=== PATIENT | female | born 1960 | race Hispanic/Latino ===

== ENCOUNTER 2017-05-27 07:43 | Emergency (ER) | payer MEDICARE, MEDICAID ==
[2017-05-27 07:53] VITALS: TEMP 97; O2SAT 100; BMI 36.9
[2017-05-27] MEDS ORDERED: Sodium Chloride 0.9% 1,000 ML IV STA (08:17)
--- NOTE | 2017-05-27 08:28 | ED PDOC ---
HPI: Back Time Seen by Provider: 05/27/17 07:56 Chief Complaint (Nursing): Back Pain Chief Complaint (Provider): Left Flank Pain History Per: Patient History/Exam Limitations: no limitations Onset/Duration Of Symptoms: Days (x1) Current Symptoms Are (Timing): Still Present Additional Complaint(s): Sunitha Slaughter is a 57 year old female with a past medical history of kidney stones, pre-diabetic, hypertension, and thyroid disease presenting to the ED for an evaluation of left sided flank pain occurring for 1 day prior to arrival. The patient describes the pain as sharp, biting pain radiating down her pelvis. Given the patients history of renal stones, the patient attempted to strain her urine but did not see a stone pass through. The patient also reports associated chills and has taken Aleve for her symptoms. Additionally, the patient states being admitted for her kidney stones 3 years prior to arrival due to discomfort caused by the pain. She denies any history of back pain, arthritis, sciatica, or radiculopathay. The patient also denies any nausea , vomiting, diarrhea, blood in urine, or abdominal pain. PMD: MD Ervin Past Medical History Reviewed: Historical Data, Nursing Documentation, Vital Signs Vital Signs: Last Vital Signs Temp 97.0 F L 05/27/17 07:51 Pulse 74 05/27/17 07:51 Resp 16 05/27/17 07:51 BP 134/77 05/27/17 07:51 Pulse Ox 100 05/27/17 07:51 - Medical History PMH: Anxiety, Back Problems, Cardia Arrhythmia, Gastritis, HTN, Hypothyroidism, Kidney Stones, Migraine - Surgical History Surgical History: Appendectomy (pt was told she had one 15 years ago but appendix visualized on recent US), (3) Other surgeries: mass removal in left breast; laparoscopy - Family History Family History: States: No Known Family Hx - Social History Current smoker - smoking cessation education provided: No Ex-Smoker (has not smoked in the last 12 months): No Alcohol: None Drugs: Denies - Immunization History Hx Tetanus Toxoid Vaccination: No Hx Influenza Vaccination: No Hx Pneumococcal Vaccination: No - Home Medications Home Medications: Ambulatory Orders Medication Instructions Recorded Acetaminophen with Codeine 1 tab PO Q6H PRN #10 tab 07/31/16 [Tylenol with Codeine No. 3 300 mg-30 mg] Levothyroxine [Synthroid] 50 mg PO DAILY 07/31/16 Losartan [Cozaar] 75 mg PO DAILY 07/31/16 hydroCHLOROthiazide [Hydrodiuril] 25 mg PO DAILY 07/31/16 traMADol [Ultram] 50 mg PO TID PRN #12 tab 05/27/17 - Allergies Allergies/Adverse Reactions: Allergies Allergy/AdvReac Type Severity Reaction Status Date / Time sumatriptan [From Imitrex] AdvReac SHORTNESS Verified 04/23/16 13:13 OF BREATH sumatriptan succinate AdvReac SHORTNESS Verified 04/23/16 13:13 [From Imitrex] OF BREATH Review of Systems ROS Statement: Except As Marked, All Systems Reviewed And Found Negative Constitutional: Positive for: Chills. Negative for: Fever Gastrointestinal: Negative for: Nausea, Vomiting, Abdominal Pain, Diarrhea Genitourinary Female: Negative for: Hematuria Musculoskeletal: Positive for: Back Pain (left flank pain) Physical Exam - Reviewed Nursing Documentation Reviewed: Yes Vital Signs Reviewed: Yes - Physical Exam Appears: Positive for: Non-toxic, No Acute Distress Head Exam: Positive for: ATRAUMATIC, NORMOCEPHALIC Skin: Positive for: Normal Color, Warm, Dry Eye Exam: Positive for: Normal appearance, EOMI ENT: Positive for: Normal ENT Inspection Neck: Positive for: Normal, Painless ROM, Supple Cardiovascular/Chest: Positive for: Regular Rate, Rhythm. Negative for: Edema, Murmur Respiratory: Positive for: Normal Breath Sounds. Negative for: Respiratory Distress Gastrointestinal/Abdominal: Positive for: Normal Exam, Soft. Negative for: Tenderness Back: Positive for: L CVA Tenderness, Other (tenderness to left lower back). Negative for: R CVA Tenderness Extremity: Positive for: Normal ROM. Negative for: Deformity Neurologic/Psych: Positive for: Alert, Oriented (x3). Negative for: Motor/ Sensory Deficits - Laboratory Results Result Diagrams: 05/27/17 08:53 05/27/17 08:53 - ECG O2 Sat by Pulse Oximetry: 100 (RA) Pulse Ox Interpretation: Normal Medical Decision Making Medical Decision Making: Time: 07:56 Impression: Left flank pain Differential diagnosis includes but is not limited to kidney stone with renal colic, musculoskeletal pain and r/o UTI Plan: * CMP * CBC (with differential) * Urinalysis * NS 0.9% 1,000 ml IV 1,000 mls/hr * Toradol 30 mg IVP * CT Abd & Pelvis w/o PO or IV cont * Flexeril 10 mg PO * Reevaluation Blood present in urinalysis CT Abd Results: FINDINGS: LOWER THORAX: Unremarkable. LIVER: Hepatic steatosis. No gross lesion or ductal dilatation. GALLBLADDER AND BILE DUCTS: Unremarkable. PANCREAS: Unremarkable. No gross lesion or ductal dilatation. SPLEEN: Unremarkable. ADRENALS: Stable appearance of 2.0 centimeter left adrenal adenoma. KIDNEYS AND URETERS: Punctate nonobstructive left mid/lower pole calculus. No hydronephrosis. No solid mass. VASCULATURE: Unremarkable. No aortic aneurysm. BOWEL: Unremarkable. No obstruction. No gross mural thickening. APPENDIX: Unremarkable. Normal appendix. PERITONEUM: Stable appearance of the left inguinal fat containing hernia with surrounding soft tissue density stable small right fat containing inguinal hernia. Tiny fat containing umbilical hernia. No free fluid. No free air. LYMPH NODES: Unremarkable. No enlarged lymph nodes. BLADDER: Unremarkable. REPRODUCTIVE: Interval change in appearance of left ovarian mass which now measures 4.1 x 4.4 centimeter and has a completely solid appearance. BONES: No acute fracture. OTHER FINDINGS: None. IMPRESSION: Nonobstructive left mid/ lower pole nonobstructive renal calculus. No evidence of recently passed genitourinary calculus. Interval change in appearance of left ovarian mass which now measures 4.1 x 4.4 centimeter and now has a completely solid appearance. Further evaluation with pelvic ultrasound and/or contrast-enhanced MRI is recommended. Additional stable findings as above. Findings conveyed to Dr. Patten by Dr. Middleton at 9:10 a.m. on 05/27/2017. 10:03 * US Pelvis/Transvag due to left flank pain/left ovarian cyst/mass * Morphine 4 mg IVP - upon reassessment, pt still complaining of pain. 13:08 US pelvis/transvag: FINDINGS: UTERUS: Measures 8.4 x 3.8 x 4.9 cm. Anteverted. Normal in size and appearance. No fibroid or other mass lesion seen. ENDOMETRIUM: Complex in appearance measuring up to 1.6 centimeter. CERVIX: No cervical abnormality identified. RIGHT OVARY: Not visualized. LEFT OVARY: Measures 3.9 x 4.0 x 3.3 cm. Complex hypoechoic mass measuring 3.4 x 2.8 x 2.8 centimeter with 1.7 x 1.3 x 1.6 centimeter echogenic focus. This previously appeared more cystic. Normal flow. FREE FLUID: No significant free fluid noted. OTHER FINDINGS: None. IMPRESSION: Mass on CT scan, there has been interval change in the appearance of the left ovarian mass which now appears more solid. Abnormal appearance of endometrium which is thickened and complex in appearance. Contrast-enhanced MRI is recommended for further evaluation as previously recommended. Scribe Attestation: Documented by Janeth Sharif, acting as a scribe for Cecy Patten MD. Provider Scribe Attestation: All medical record entries made by the Scribe were at my direction and personally dictated by me. I have reviewed the chart and agree that the record accurately reflects my personal performance of the history, physical exam, medical decision making, and the department course for this patient. I have also personally directed, reviewed, and agree with the discharge instructions and disposition. Disposition - Clinical Impression Clinical Impression: Ovarian mass, left, Renal colic on left side - Patient ED Disposition Is Patient to be Admitted: No Doctor Will See Patient In The: Office Counseled Patient/Family Regarding: Studies Performed, Diagnosis, Need For Followup - Disposition Referrals: [facility] [Outside] Disposition: Routine/Home Disposition Time: 13:25 Condition: GOOD Additional Instructions: Take your medications as instructed. Follow up with your PCP in 2-3 days. Prescriptions: traMADol [Ultram] 50 mg PO TID PRN #12 tab PRN Reason: Pain, Severe (8-10) Instructions: Flank Pain (ED)
--- NOTE | 2017-05-27 09:14 | CT ---
PROCEDURE: CT Abdomen and Pelvis without intravenous contrast HISTORY: left flank pain COMPARISON: CT scan of the abdomen pelvis dated 04/23/2016. TECHNIQUE: Contiguous images were obtained from the domes of the diaphragms to the upper thighs without the administration of intravenous contrast. Oral contrast was not administered. Radiation dose: Total exam DLP = 963.4 mGy-cm. This CT exam was performed using one or more of the following dose reduction techniques: Automated exposure control, adjustment of the mA and/or kV according to patient size, and/or use of iterative reconstruction technique. FINDINGS: LOWER THORAX: Unremarkable. LIVER: Hepatic steatosis. No gross lesion or ductal dilatation. GALLBLADDER AND BILE DUCTS: Unremarkable. PANCREAS: Unremarkable. No gross lesion or ductal dilatation. SPLEEN: Unremarkable. ADRENALS: Stable appearance of 2.0 centimeter left adrenal adenoma. KIDNEYS AND URETERS: Punctate nonobstructive left mid/lower pole calculus. No hydronephrosis. No solid mass. VASCULATURE: Unremarkable. No aortic aneurysm. BOWEL: Unremarkable. No obstruction. No gross mural thickening. APPENDIX: Unremarkable. Normal appendix. PERITONEUM: Stable appearance of the left inguinal fat containing hernia with surrounding soft tissue density stable small right fat containing inguinal hernia. Tiny fat containing umbilical hernia. No free fluid. No free air. LYMPH NODES: Unremarkable. No enlarged lymph nodes. BLADDER: Unremarkable. REPRODUCTIVE: Interval change in appearance of left ovarian mass which now measures 4.1 x 4.4 centimeter and has a completely solid appearance. BONES: No acute fracture. OTHER FINDINGS: None. IMPRESSION: Nonobstructive left mid/ lower pole nonobstructive renal calculus. No evidence of recently passed genitourinary calculus. Interval change in appearance of left ovarian mass which now measures 4.1 x 4.4 centimeter and now has a completely solid appearance. Further evaluation with pelvic ultrasound and/or contrast-enhanced MRI is recommended. Additional stable findings as above. Findings conveyed to Dr. Patten by Dr. Middleton at 9:10 a.m. on 05/27/2017.
[2017-05-27 09:27] LABS: BASO % 0.6 % (0.0-2.0); EOS # 0.2 K/uL (0.0-0.7); EOS % 2.5 % (0.0-4.0); HEMATOCRIT 41.7 % (34.0-47.0); LYMPH % 29.5 % (20.0-40.0); MEAN CELL VOLUME 88.3 fl (81.0-99.0); MEAN CORPUSCULAR HEMOGLOBIN 28.7 pg (27.0-31.0); MEAN CORPUSCULAR HGB CONC 32.5 g/dL (33.0-37.0); MEAN PLATELET VOLUME 8.6 fl (7.2-11.7); MONO # 0.5 K/uL (0.0-0.8); MONO % 8.1 % (0.0-10.0); NEUT # 3.9 K/uL (1.8-7.0); NEUT % 59.3 % (50.0-75.0); NRBC % 0.2 % (0.0-0.0); RED CELL DISTRIBUTION WIDTH 14.2 % (11.5-14.5); WHITE BLOOD COUNT 6.6 K/uL (4.8-10.8)
[2017-05-27 09:35] LABS: CALCIUM 9.1 mg/dL (8.4-10.2); CARBON DIOXIDE 29 mmol/L (22-30); CHLORIDE 101 mmol/L (98-107); GFR AFRICAN-AMERICAN > 60; GLUCOSE,RANDOM 113 mg/dL (65-105); RBC URINE 2 /hpf (0-3); SODIUM 140 mmol/l (132-148); URINE BACTERIA RARE (<OCC); URINE BILIRUBIN NEGATIVE (NEGATIVE); URINE COLOR YELLOW (YELLOW); URINE GLUCOSE (UA) NEG (Normal); URINE KETONE NEGATIVE (NEGATIVE); URINE LEUKOCYTE ESTERASE NEG Leu/uL (Negative); URINE PROTEIN 30 mg/dL (NEGATIVE); URINE UROBILINOGEN 0.2-1.0 mg/dL (0.2-1.0); WBC URINE 1 /hpf (0-5)
[2017-05-27 09:36] LABS: URINE BLOOD NEGATIVE (NEGATIVE)
[2017-05-27 09:39] LABS: BLOOD UREA NITROGEN 19 mg/dl (7-17); POTASSIUM 4.1 MMOL/L (3.6-5.0)
[2017-05-27] MEDS ORDERED: Morphine 4 MG/ML VIAL IVP ONE (10:03)
[2017-05-27] MEDS ORDERED: Morphine 4 MG/ML VIAL ONE (10:38)
[2017-05-27 10:44] VITALS: BP 142/78; PULSE 87; RESP 99
--- NOTE | 2017-05-27 12:48 | US ---
HISTORY: left flank pain left ovarian cyst/mass COMPARISON: Correlations made to CT scan of the abdomen pelvis performed earlier the same day; pelvic ultrasound dated 04/23/2016. TECHNIQUE: Grayscale, color Doppler and spectral evaluation of the pelvis performed transabdominally and transvaginally FINDINGS: UTERUS: Measures 8.4 x 3.8 x 4.9 cm. Anteverted. Normal in size and appearance. No fibroid or other mass lesion seen. ENDOMETRIUM: Complex in appearance measuring up to 1.6 centimeter. CERVIX: No cervical abnormality identified. RIGHT OVARY: Not visualized. LEFT OVARY: Measures 3.9 x 4.0 x 3.3 cm. Complex hypoechoic mass measuring 3.4 x 2.8 x 2.8 centimeter with 1.7 x 1.3 x 1.6 centimeter echogenic focus. This previously appeared more cystic. Normal flow. FREE FLUID: No significant free fluid noted. OTHER FINDINGS: None. IMPRESSION: Mass on CT scan, there has been interval change in the appearance of the left ovarian mass which now appears more solid. Abnormal appearance of endometrium which is thickened and complex in appearance. Contrast-enhanced MRI is recommended for further evaluation as previously recommended.
[2017-05-27] MEDS ORDERED: Oxycodone/Acetaminophen 5/325 mg Tab PO STA (13:42)
[2017-05-27] MEDS ORDERED: Oxycodone/Acetaminophen 5/325 mg Tab ONE (13:47)
== END 2017-05-27 14:05 | disposition home or self-care (01) ==
LOC: H.ER 07:43
DX: N83.202 Unspecified ovarian cyst, left side (principal); E03.9 Hypothyroidism, unspecified; F41.9 Anxiety disorder, unspecified; I10 Essential (primary) hypertension; N20.0 Calculus of kidney; R73.03 Prediabetes
CPT/HCPCS: 74176; 76830; 76856; 80048; 81003; 85025; 96374; 96375; 99283; J1885; J2270; J7040

== ENCOUNTER 2017-08-27 18:50 | Emergency (ER) | payer MEDICARE, MEDICAID ==
[2017-08-27 18:50] VITALS: BMI 36.9
[2017-08-27 19:07] VITALS: BP 118/79; PULSE 85; RESP 16; TEMP 99.7; O2SAT 97
--- NOTE | 2017-08-27 21:47 | ED PDOC ---
HPI: Influenza Time Seen by Provider: 08/27/17 19:23 Chief Complaint: Cough, Cold, Congestion Chief Complaint (Provider): Cough History Per: Patient Exam Limitations: no limitations Have you had recent travel within the past 21 days to any of: No Onset/Duration Of Symptoms: Days (x5) Symptoms include: fever (tmax 103), bodyaches, cough. denies: sore throat, chest pain Sick Contacts (Context): None Additional complaint(s):: 57 year old female presents to the emergency department complaining of cough productive of clear sputum x5 days. Thee patient reports that the cough is exacerbated when she lays down. She also notes a fever tmax of 103 at home, body aches and chills. Denies leg swelling and chest pain. Of note: Patient states that she had been taking some left over cipro that she has been taking for the past 5 days but it has offered her no relief. Past Medical History Reviewed: Historical Data, Nursing Documentation, Vital Signs Vital Signs: Last Vital Signs Temp 99.7 F H 08/27/17 19:04 Pulse 85 08/27/17 19:04 Resp 16 08/27/17 19:04 BP 118/79 08/27/17 19:04 Pulse Ox 97 08/27/17 19:04 - Medical History PMH: Anxiety, Back Problems, Cardia Arrhythmia, Gastritis, HTN, Hypothyroidism, Kidney Stones, Migraine - Surgical History Surgical History: Appendectomy (pt was told she had one 15 years ago but appendix visualized on recent US), (3) - Family History Family History: States: Unknown Family Hx - Social History Current smoker - smoking cessation education provided: No Ex-Smoker (has not smoked in the last 12 months): No Alcohol: None Drugs: Denies - Immunization History Hx Tetanus Toxoid Vaccination: No Hx Influenza Vaccination: No Hx Pneumococcal Vaccination: No - Home Medications Home Medications: Ambulatory Orders Medication Instructions Recorded Acetaminophen with Codeine 1 tab PO Q6H PRN #10 tab 07/31/16 [Tylenol with Codeine No. 3 300 mg-30 mg] Levothyroxine [Synthroid] 50 mg PO DAILY 07/31/16 Losartan [Cozaar] 75 mg PO DAILY 07/31/16 hydroCHLOROthiazide [Hydrodiuril] 25 mg PO DAILY 07/31/16 traMADol [Ultram] 50 mg PO TID PRN #12 tab 05/27/17 Azithromycin 1 tab PO DAILY #6 tab 08/27/17 Promethazine HCl/Codeine 10 ml PO Q6 PRN #120 ml 08/27/17 [Prometh-Codein 6.25-10 mg/5 ml] - Allergies Allergies/Adverse Reactions: Allergies Allergy/AdvReac Type Severity Reaction Status Date / Time sumatriptan [From Imitrex] AdvReac SHORTNESS Verified 08/27/17 19:03 OF BREATH sumatriptan succinate AdvReac SHORTNESS Verified 08/27/17 19:03 [From Imitrex] OF BREATH Review of Systems ROS Statement: Except As Marked, All Systems Reviewed And Found Negative Constitutional: Positive for: Fever (tmax 103), Chills, Other (body aches) ENT: Negative for: Nose Discharge, Throat Pain Cardiovascular: Negative for: Chest Pain Musculoskeletal: Positive for: Other (No leg swelling) Physical Exam - Reviewed Nursing Documentation Reviewed: Yes Vital Signs Reviewed: Yes - Physical Exam Appears: Positive for: Well, No Acute Distress Head Exam: Positive for: ATRAUMATIC, NORMAL INSPECTION Skin: Positive for: Warm, Dry Eye Exam: Positive for: EOMI, PERRL ENT: Negative for: Pharyngeal Erythema, Tonsillar Exudate Neck: Positive for: Painless ROM, Supple Cardiovascular/Chest: Positive for: Regular Rate, Rhythm. Negative for: Murmur Respiratory: Positive for: Normal Breath Sounds. Negative for: Respiratory Distress Gastrointestinal/Abdominal: Positive for: Soft. Negative for: Tenderness Back: Positive for: Normal Inspection. Negative for: Decreased ROM Extremity: Positive for: Normal ROM. Negative for: Deformity Lymphatic: Negative for: Adenopathy Neurologic/Psych: Positive for: Alert. Negative for: Motor/Sensory Deficits Medical Decision Making Medical Decision Makin Initial Impression 57 y/o female presenting with cough Differentials: Pneumonia, Bronchitis, Chest Cold, Flu Initial Plan: * CXR * Influenza A B * Reevaluation CXR negative for infiltrate or effusion. Pt stable with benign clinical findings. Will treat as acute bronchitis. Zpack and promethazine w codeine. Pt agrees with plan and will f/u PMD this week. Documented by Shilpa Liu acting as a scribe for Ashley Verdin MD. All medical record entries made by the Scribe were at my direction and personally dictated by me. I have reviewed the chart and agree that the record accurately reflects my personal performance of the history, physical exam, medical decision making, and the department course for this patient. I have also personally directed, reviewed, and agree with the discharge instructions and disposition. - ECG O2 Sat by Pulse Oximetry: 97 Disposition - Clinical Impression Clinical Impression: Bronchitis - Disposition Referrals: Remigio Reese MD [Family Provider] - Disposition: Routine/Home Disposition Time: 21:30 Condition: GOOD Additional Instructions: FOLLOW UP WITH DR REESE THIS WEEK FOR REEVALUATION Prescriptions: Azithromycin 1 tab PO DAILY #6 tab Promethazine HCl/Codeine [Prometh-Codein 6.25-10 mg/5 ml] 10 ml PO Q6 PRN #120 ml PRN Reason: SEVERE COUGH ONLY Instructions: Acute Bronchitis Forms: [employer] (Albanian)
--- NOTE | 2017-08-28 08:54 | RAD ---
HISTORY: cough fever COMPARISON: Chest radiographs 04/13/2015. TECHNIQUE: Chest PA and lateral FINDINGS: LUNGS: No active pulmonary disease. PLEURA: No significant pleural effusion identified. No pneumothorax apparent. CARDIOVASCULAR: Normal. OSSEOUS STRUCTURES: No significant abnormalities. VISUALIZED UPPER ABDOMEN: Normal. OTHER FINDINGS: None. IMPRESSION: No interval acute cardiopulmonary disease appreciated.
== END 2017-08-27 22:10 | disposition home or self-care (01) ==
LOC: H.ER 18:50
DX: J40 Bronchitis, not specified as acute or chronic (principal); E03.9 Hypothyroidism, unspecified; F41.9 Anxiety disorder, unspecified; I10 Essential (primary) hypertension

== ENCOUNTER 2017-12-09 21:19 | Emergency (ER) | payer MEDICARE, MEDICAID ==
[2017-12-09 21:19] VITALS: BMI 36.9
[2017-12-09] MEDS ORDERED: Alum-Mag Hydrox-Simethicone Susp (30 mL) PO STA (22:50)
[2017-12-09] MEDS ORDERED: Atrop/Hyos/Scop/PhenoB Elixir PO STA (22:50)
[2017-12-09] MEDS ORDERED: Alum-Mag Hydrox-Simethicone Susp (30 mL) ONE (23:02)
--- NOTE | 2017-12-09 23:19 | ED PDOC ---
HPI: Abdomen Time Seen by Provider: 12/09/17 22:11 Chief Complaint (Nursing): Abdominal Pain Chief Complaint (Provider): Abdominal Pain History Per: Patient History/Exam Limitations: no limitations Onset/Duration Of Symptoms: Hrs Current Symptoms Are (Timing): Still Present Location Of Pain/Discomfort: Epigastric Quality Of Discomfort: Burning Associated Symptoms: Vomiting. denies: Diarrhea, Chest Pain Additional Complaint(s): Sunitha Slaughter is a 57 year old female with a past medical history of hypertension , diabetes, and gastritis, who is presenting to the ED with complaints of epigastric pain onset a few hours ago after eating chicken wings. Patient states that she feelings a burning sensation like acid and experienced one episode of non-bloody vomiting which lessened her pain. She reports that she has been burping and states that she thinks it is related to her history of gastritis. She says that she took Pepcid prior to arrival and is taking her medications accordingly. Patient denies any diarrhea or chest pain. PMD: Dr. Reese Past Medical History Reviewed: Historical Data, Nursing Documentation, Vital Signs Vital Signs: Last Vital Signs Temp 98.4 F 12/09/17 22:04 Pulse 74 12/09/17 22:04 Resp 20 12/09/17 22:04 BP 140/82 12/09/17 22:04 Pulse Ox 99 12/10/17 00:19 - Medical History PMH: Anxiety, Back Problems, Cardia Arrhythmia, Gastritis, HTN, Hypothyroidism, Kidney Stones, Migraine - Surgical History Surgical History: Appendectomy (pt was told she had one 15 years ago but appendix visualized on recent US), (3) Other surgeries: oophorectomy - Family History Family History: States: Unknown Family Hx - Social History Current smoker - smoking cessation education provided: No Alcohol: None Drugs: Denies - Immunization History Hx Tetanus Toxoid Vaccination: No Hx Influenza Vaccination: No Hx Pneumococcal Vaccination: No - Home Medications Home Medications: Ambulatory Orders Medication Instructions Recorded Acetaminophen with Codeine 1 tab PO Q6H PRN #10 tab 07/31/16 [Tylenol with Codeine No. 3 300 mg-30 mg] Levothyroxine [Synthroid] 50 mg PO DAILY 07/31/16 Losartan [Cozaar] 75 mg PO DAILY 07/31/16 hydroCHLOROthiazide [Hydrodiuril] 25 mg PO DAILY 07/31/16 traMADol [Ultram] 50 mg PO TID PRN #12 tab 05/27/17 Azithromycin 1 tab PO DAILY #6 tab 08/27/17 Promethazine HCl/Codeine 10 ml PO Q6 PRN #120 ml 08/27/17 [Prometh-Codein 6.25-10 mg/5 ml] - Allergies Allergies/Adverse Reactions: Allergies Allergy/AdvReac Type Severity Reaction Status Date / Time sumatriptan [From Imitrex] AdvReac SHORTNESS Verified 08/27/17 19:03 OF BREATH sumatriptan succinate AdvReac SHORTNESS Verified 08/27/17 19:03 [From Imitrex] OF BREATH Review of Systems ROS Statement: Except As Marked, All Systems Reviewed And Found Negative Cardiovascular: Negative for: Chest Pain Gastrointestinal: Positive for: Vomiting, Abdominal Pain. Negative for: Diarrhea Physical Exam - Reviewed Nursing Documentation Reviewed: Yes Vital Signs Reviewed: Yes - Physical Exam Appears: Positive for: Non-toxic, No Acute Distress Head Exam: Positive for: ATRAUMATIC, NORMAL INSPECTION, NORMOCEPHALIC Skin: Positive for: Normal Color, Warm, DRY Eye Exam: Positive for: EOMI, Normal appearance, PERRL ENT: Positive for: Normal ENT Inspection Neck: Positive for: Normal, Painless ROM Cardiovascular/Chest: Positive for: Regular Rate, Rhythm. Negative for: Murmur Respiratory: Positive for: Normal Breath Sounds. Negative for: Respiratory Distress Gastrointestinal/Abdominal: Positive for: Soft, Tenderness (mild epigastric tenderness). Negative for: Distended, Guarding, Rebound Back: Positive for: Normal Inspection. Negative for: L CVA Tenderness, R CVA Tenderness, Vertebral Tenderness Extremity: Positive for: Normal ROM. Negative for: Deformity, Swelling Neurologic/Psych: Positive for: Alert, Oriented. Negative for: Motor/Sensory Deficits - ECG O2 Sat by Pulse Oximetry: 99 (RA) Pulse Ox Interpretation: Normal - Progress Re-evaluation Time: 00:19 Condition: Re-examined, Improved Medical Decision Making Medical Decision Making: Time: 23:05 Impression: Epigastric Pain Differentials: Acute Gastritis, GERD Plan: --EKG-- 5 ml PO --Lidocaine 15 ml PO --Maalox 30 ml PO --Zofran 4 mg PO Scribe Attestation: Documented by, Leesa Islas acting as a scribe for Cecy Patten MD. Provider Scribe Attestation: All medical record entries made by the Scribe were at my direction and personally dictated by me. I have reviewed the chart and agree that the record accurately reflects my personal performance of the history, physical exam, medical decision making, and the department course for this patient. I have also personally directed, reviewed, and agree with the discharge instructions and disposition. Disposition - Clinical Impression Clinical Impression: Abdominal pain - Patient ED Disposition Is Patient to be Admitted: No Doctor Will See Patient In The: Office Counseled Patient/Family Regarding: Studies Performed, Diagnosis, Need For Followup - Disposition Referrals: Remigio Reese MD [Family Provider] - Disposition: Routine/Home Disposition Time: 00:16 Condition: GOOD Additional Instructions: Take your medications as instructed. Follow up with your PCP in 2-3 days. Instructions: Gastritis
[2017-12-10 00:26] VITALS: BP 143/81; PULSE 82; RESP 16; TEMP 98.5; O2SAT 98
== END 2017-12-10 00:27 | disposition home or self-care (01) ==
LOC: H.ER 21:19
DX: R10.13 Epigastric pain (principal); I10 Essential (primary) hypertension; Z87.442 Personal history of urinary calculi; E03.9 Hypothyroidism, unspecified

== ENCOUNTER 2018-03-10 00:16 | Emergency (ER) | payer MEDICARE, MEDICAID ==
[2018-03-10 00:17] VITALS: BMI 36.9
[2018-03-10 00:45] VITALS: RESP 16; O2SAT 99
[2018-03-10] MEDS ORDERED: Naproxen 500 MG TAB PO ONE (01:45)
--- NOTE | 2018-03-10 01:57 | ED PDOC ---
Lower Extremity Pain/Injury Time Seen by Provider: 03/10/18 00:49 Chief Complaint (Nursing): Lower Extremity Problem/Injury Chief Complaint (Provider): left leg pain History Per: Patient History/Exam Limitations: no limitations Onset/Duration Of Symptoms: Hrs (today) Current Symptoms Are (Timing): Gone Now Additional Complaint(s): Sunitha Slaughter is a 57 year old female, with a past medical history of diabetes, who presents to the emergency department for a sudden shock-like pain to her left leg onset today. Patient reports she was taking a shower during onset of sy mptoms. She was concerned for potential blood clot but on arrival patient states pain has resolved. Patient further states she wants to be checked for right rib pain ongoing for months after chiropractic injury. She denies any calf swelling, redness or symptoms related to leg currently. No further medical complaints. PMD: Remigio Reese Past Medical History Reviewed: Historical Data, Nursing Documentation, Vital Signs Vital Signs: Last Vital Signs Temp 97.9 F 03/10/18 00:41 Pulse 76 03/10/18 00:41 Resp 16 03/10/18 00:41 BP 142/61 03/10/18 00:41 Pulse Ox 99 03/10/18 00:41 - Medical History PMH: Anxiety, Back Problems, Cardia Arrhythmia, Diabetes, Gastritis, HTN, Hypothyroidism, Kidney Stones, Migraine - Surgical History Surgical History: Appendectomy (pt was told she had one 15 years ago but appendix visualized on recent US), (3) - Family History Family History: States: Unknown Family Hx - Social History Current smoker - smoking cessation education provided: No Alcohol: None Drugs: Denies - Immunization History Hx Tetanus Toxoid Vaccination: No Hx Influenza Vaccination: No Hx Pneumococcal Vaccination: No - Home Medications Home Medications: Ambulatory Orders Medication Instructions Recorded Acetaminophen with Codeine 1 tab PO Q6H PRN #10 tab 07/31/16 [Tylenol with Codeine No. 3 300 mg-30 mg] Levothyroxine [Synthroid] 50 mg PO DAILY 07/31/16 Losartan [Cozaar] 75 mg PO DAILY 07/31/16 hydroCHLOROthiazide [Hydrodiuril] 25 mg PO DAILY 07/31/16 traMADol [Ultram] 50 mg PO TID PRN #12 tab 05/27/17 Azithromycin 1 tab PO DAILY #6 tab 08/27/17 Promethazine HCl/Codeine 10 ml PO Q6 PRN #120 ml 08/27/17 [Prometh-Codein 6.25-10 mg/5 ml] Cyclobenzaprine [Cyclobenzaprine 10 mg PO BID #15 tab 03/10/18 HCl] Ibuprofen/Famotidine [Duexis 1 each PO Q12 #14 tablet 03/10/18 800-26.6 mg Tablet] - Allergies Allergies/Adverse Reactions: Allergies Allergy/AdvReac Type Severity Reaction Status Date / Time sumatriptan [From Imitrex] AdvReac SHORTNESS Verified 08/27/17 19:03 OF BREATH sumatriptan succinate AdvReac SHORTNESS Verified 08/27/17 19:03 [From Imitrex] OF BREATH Review of Systems ROS Statement: Except As Marked, All Systems Reviewed And Found Negative Musculoskeletal: Positive for: Other (right rib pain). Negative for: Leg Pain (resolved) Physical Exam - Reviewed Nursing Documentation Reviewed: Yes Vital Signs Reviewed: Yes - Physical Exam Appears: Positive for: No Acute Distress Head Exam: Positive for: ATRAUMATIC, NORMAL INSPECTION, NORMOCEPHALIC Skin: Positive for: Normal Color, Warm, Dry Eye Exam: Positive for: Normal appearance, EOMI, PERRL Neck: Positive for: Painless ROM Cardiovascular/Chest: Positive for: Regular Rate, Rhythm, Other (Right rib cage, 4th and 5th mid axillary tenderness. No step-off or crepitus, no bony abnormality). Negative for: Murmur Respiratory: Positive for: Normal Breath Sounds. Negative for: Respiratory Distress Gastrointestinal/Abdominal: Positive for: Normal Exam, Soft. Negative for: Tenderness, Guarding, Rebound Back: Positive for: Normal Inspection. Negative for: L CVA Tenderness, R CVA Tenderness, Vertebral Tenderness Extremity: Positive for: Normal ROM (upper and lower extremities). Negative for: Deformity, Swelling Neurologic/Psych: Positive for: Alert, Oriented - ECG O2 Sat by Pulse Oximetry: 99 (RA) Pulse Ox Interpretation: Normal Medical Decision Making Medical Decision Making: Time: 00:49 A/P: 57 y/o female with resolved calf pain, no signs or symptoms suggestive of DVT. Right rib pain likely related to old bruising. Rib series to r/o acute fracture Initial Plan: --Ribs and chest RT [RAD] --Pepcid 20 mg PO --Naprosyn tab 250 mg PO --Reevaluation 03:00 X-ray negative. Patient is medically stable, and requires no further treatment in the ED at this time. Patient will be discharged home. Counseling was provided and all questions were answered regarding diagnosis. There is agreement to discharge plan. Return if symptoms persist or worsen. ----- Scribe Attestation: Documented by Felix Ness, acting as a scribe for Thierry Charlton MD. Provider Scribe Attestation: All medical record entries made by the Scribe were at my direction and personally dictated by me. I have reviewed the chart and agree that the record accurately reflects my personal performance of the history, physical exam, medical decision making, and the department course for this patient. I have also personally directed, reviewed, and agree with the discharge instructions and disposition. Disposition - Clinical Impression Clinical Impression: Rib pain - Disposition Referrals: Remigio Reese MD [Family Provider] - Disposition: Routine/Home Disposition Time: 03:00 Condition: STABLE Prescriptions: Cyclobenzaprine [Cyclobenzaprine HCl] 10 mg PO BID #15 tab Ibuprofen/Famotidine [Duexis 800-26.6 mg Tablet] 1 each PO Q12 #14 tablet Instructions: Bruised Rib (DC) Forms: [employer] (Spanish)
[2018-03-10 03:20] VITALS: BP 132/80; PULSE 82; TEMP 98.1
--- NOTE | 2018-03-10 17:21 | RAD ---
Date of service: 03/10/2018 PROCEDURE: Radiographs of the Chest and Right Ribs. HISTORY: rib pain, R sided x months after trauma COMPARISON: 11/16/2017 chest x-ray TECHNIQUE: Frontal radiograph of the chest and multiple oblique radiographs of the right ribs were obtained. FINDINGS: RIGHT RIBS: No fracture or focal lesion visualized. LUNGS: Clear. PLEURA: No pneumothorax or pleural fluid. CARDIOVASCULAR: Normal sized heart. No pulmonary vascular congestion. OTHER FINDINGS: None. IMPRESSION: Unremarkable radiographs of the chest and right ribs. No right rib fracture.
== END 2018-03-10 03:20 | disposition home or self-care (01) ==
LOC: H.ER 00:16
DX: R07.82 Intercostal pain (principal); E03.9 Hypothyroidism, unspecified; E11.9 Type 2 diabetes mellitus without complications; I10 Essential (primary) hypertension

== ENCOUNTER 2018-07-02 14:37 | Emergency (ER) | payer MEDICARE, MEDICAID ==
[2018-07-02 14:37] VITALS: BMI 36.9
[2018-07-02 14:50] VITALS: BP 125/75; PULSE 94; RESP 18; TEMP 98.7; O2SAT 99
--- NOTE | 2018-07-02 15:08 | ED PDOC ---
Lower Extremity Pain/Injury Time Seen by Provider: 07/02/18 14:55 Chief Complaint (Nursing): Lower Extremity Problem/Injury Chief Complaint (Provider): "Lump" on leg History Per: Patient History/Exam Limitations: no limitations Additional Complaint(s): 58yo female, comes to ER for evaluation of a "lump" on her right leg. Patient states she noticed the small lump earlier today while putting lotion on her leg. She otherwise denies any pain, fever, chills, weakness or numbness in her leg. Past Medical History Reviewed: Historical Data, Nursing Documentation, Vital Signs Vital Signs: Last Vital Signs Temp 98.7 F 07/02/18 14:46 Pulse 94 H 07/02/18 14:46 Resp 18 07/02/18 14:46 BP 125/75 07/02/18 14:46 Pulse Ox 99 07/02/18 14:46 - Medical History PMH: Anxiety, Back Problems, Cardia Arrhythmia, Diabetes, Gastritis, HTN, Hypothyroidism, Kidney Stones, Migraine - Surgical History Surgical History: Appendectomy (pt was told she had one 15 years ago but appendix visualized on recent US), (3) - Family History Family History: States: No Known Family Hx - Immunization History Hx Tetanus Toxoid Vaccination: No Hx Influenza Vaccination: No Hx Pneumococcal Vaccination: No - Home Medications Home Medications: Ambulatory Orders Medication Instructions Recorded Acetaminophen with Codeine 1 tab PO Q6H PRN #10 tab 07/31/16 [Tylenol with Codeine No. 3 300 mg-30 mg] Losartan [Cozaar] 75 mg PO DAILY 07/31/16 RX: Levothyroxine [Synthroid] 50 mg PO DAILY 07/31/16 RX: hydroCHLOROthiazide 25 mg PO DAILY 07/31/16 [Hydrodiuril] RX: traMADol [Ultram] 50 mg PO TID PRN #12 tab 05/27/17 Promethazine HCl/Codeine 10 ml PO Q6 PRN #120 ml 08/27/17 [Prometh-Codein 6.25-10 mg/5 ml] RX: Azithromycin 1 tab PO DAILY #6 tab 08/27/17 Cyclobenzaprine [Cyclobenzaprine 10 mg PO BID #15 tab 03/10/18 HCl] Ibuprofen/Famotidine [Duexis 1 each PO Q12 #14 tablet 03/10/18 800-26.6 mg Tablet] - Allergies Allergies/Adverse Reactions: Allergies Allergy/AdvReac Type Severity Reaction Status Date / Time sumatriptan [From Imitrex] AdvReac SHORTNESS Verified 07/02/18 14:45 OF BREATH sumatriptan succinate AdvReac SHORTNESS Verified 07/02/18 14:45 [From Imitrex] OF BREATH Review of Systems ROS Statement: Except As Marked, All Systems Reviewed And Found Negative Constitutional: Negative for: Fever, Chills Musculoskeletal: Negative for: Leg Pain Skin: Positive for: Other (lump on right leg) Neurological: Negative for: Weakness, Numbness Physical Exam - Reviewed Nursing Documentation Reviewed: Yes Vital Signs Reviewed: Yes - Physical Exam Appears: Positive for: No Acute Distress Eye Exam: Positive for: Normal appearance Pulses-Dorsalis Pedis (L): 2+ Pulses-Dorsalis Pedis (R): 2+ Extremity: Positive for: Normal ROM (FROM of bilateral lower extremities), Swelling (on the anterior distal right leg, there is a small mobile mass; no tenderness, non-fluctuant, no erythema noted.), Other (negative summer's sign bilaterally). Negative for: Tenderness, Pedal Edema, Calf Tenderness, Deformity Neurologic/Psych: Positive for: Alert, Oriented. Negative for: Motor/Sensory Deficits - ECG O2 Sat by Pulse Oximetry: 99 (RA) Pulse Ox Interpretation: Normal Medical Decision Making Medical Decision Making: Impression: Mass on anterior distal right leg, likely lipoma Plan: -- Patient informed that the lump is likely a lipoma; informed that she will need a biopsy to confirm. Patient given contact information for Dr. Roberts for follow up. 1510 Stable for discharge home. Scribe Attestation: Documented by Monet Dennis, acting as a scribe for RADHA Ballesteros. Provider Scribe Attestation: All medical record entries made by the Scribe were at my direction and personally dictated by me. I have reviewed the chart and agree that the record accurately reflects my personal performance of the history, physical exam, medical decision making, and the department course for this patient. I have also personally directed, reviewed, and agree with the discharge instructions and disposition. Disposition - Clinical Impression Clinical Impression: Cyst - Patient ED Disposition Is Patient to be Admitted: No - Disposition Referrals: [facility] [Outside] Allan Fung MD [Staff Provider] - Keith Araujo MD [Staff Provider] - Disposition: Routine/Home Disposition Time: 15:11 Condition: STABLE Additional Instructions: FOLLOW UP WITH SURGERY FOR FURTHER EVALUATION RETURN TO ED IMMEDIATELY IF SYMPTOMS WORSEN SAMANTHA RODRÍGUEZ, thank you for letting us take care of you today. Your provider was Nancy Lozada MD and you were treated for LUMP ON LEG. The emergency medical care you received today was directed at your acute symptoms. If you were prescribed any medication, please fill it and take as directed. It may take several days for your symptoms to resolve. Return to the Emergency Department if your symptoms worsen, do not improve, or if you have any other problems. Please contact your doctor or call one of the physicians/clinics you have been referred to that are listed on the Patient Visit Information form that is included in your discharge packet. Bring any paperwork you were given at discharge with you along with any medications you are taking to your follow up visit. Our treatment cannot replace ongoing medical care by a primary care provider outside of the emergency department. Thank you for allowing the [facility] team to be part of your care today. If you had an X-Ray or CT scan: A Radiologist will review the ED reading if any change in treatment is needed we will contact you. If you had a blood, urine, or wound culture: It will take several days for the results, if any change in treatment is needed we will contact you. If you had an STI test: It will take 48 hours for the results. Please call after 1 week if you have not heard back. Instructions: [place] Forms: [employer] (Pashto) Print Language: GEORGIAN
== END 2018-07-02 15:36 | disposition home or self-care (01) ==
LOC: H.ER 14:37
DX: L72.8 Other follicular cysts of the skin and subcutaneous tissue (principal); E11.9 Type 2 diabetes mellitus without complications; I10 Essential (primary) hypertension; Z87.442 Personal history of urinary calculi

== ENCOUNTER 2018-09-18 03:44 | Inpatient (IN) | payer MEDICARE, MEDICAID ==
[2018-09-18 04:00] VITALS: BMI 34.3
[2018-09-18 04:51] LABS: HEMOGLOBIN 13.3 g/dL (12.0-16.0)
[2018-09-18 04:51] LABS: SQUAMOUS EPITHIAL 1 /hpf (0-5); URINE BILIRUBIN NEGATIVE (NEGATIVE); URINE BLOOD SMALL (NEGATIVE); URINE CALCIUM OXALATE CRYSTALS MANY /hpf (<OCC); URINE CLARITY SLIGHTY-CLOUDY (Clear); URINE COLOR YELLOW (YELLOW); URINE GLUCOSE (UA) NEG (NEGATIVE); URINE LEUKOCYTE ESTERASE TRACE Leu/uL (Negative); URINE PROTEIN 30 mg/dL (NEGATIVE); URINE UROBILINOGEN 0.2-1.0 mg/dL (0.2-1.0)
[2018-09-18 05:00] LABS: ALB/GLOB RATIO 1.3 (1.0-2.1); ALBUMIN 4.9 g/dL (3.5-5.0); ALT/SGPT 36 U/L (9-52); AST/SGOT 27 U/L (14-36); BLOOD UREA NITROGEN 28 mg/dl (7-17); CALCIUM 9.9 mg/dL (8.4-10.2); GFR NON-AFRICAN AMERICAN > 60
[2018-09-18 05:01] LABS: MEAN CORPUSCULAR HEMOGLOBIN 29.2 pg (27.0-31.0); RBC 4.56 Mil/uL (3.80-5.20); RED CELL DISTRIBUTION WIDTH 14.1 % (11.5-14.5)
[2018-09-18 05:04] LABS: BASO % 0.3 % (0.0-2.0); EOS % 0.3 % (0.0-4.0); LYMPH % 18.3 % (20.0-40.0); MEAN CELL VOLUME 85.8 fl (81.0-99.0); MONO % 5.7 % (0.0-10.0); NEUT % 75.4 % (50.0-75.0); WHITE BLOOD COUNT 10.6 K/uL (4.8-10.8)
[2018-09-18 05:05] LABS: LYMPH # 1.9 K/uL (1.0-4.3); MONO # 0.6 K/uL (0.0-0.8)
--- NOTE | 2018-09-18 05:25 | ED PDOC ---
HPI: Abdomen Time Seen by Provider: 09/18/18 04:00 Chief Complaint (Nursing): Abdominal Pain Chief Complaint (Provider): abd pain History Per: Patient History/Exam Limitations: no limitations Onset/Duration Of Symptoms: Days Additional Complaint(s): pt complained of r flank pain. pt sates she has history of L flank pain, when she had kidney stones 10 years ago, and at that time she needed a stent. pt denies fever but c/o nausea and vomiting. dneiesfver. no hematuria or dysruira. pmd dr celis Past Medical History Vital Signs: Last Vital Signs Temp 98.9 F 09/18/18 04:00 Pulse 92 H 09/18/18 04:00 Resp 18 09/18/18 04:00 BP 152/90 H 09/18/18 04:00 Pulse Ox 100 09/18/18 04:00 - Medical History PMH: Anxiety, Back Problems, Cardia Arrhythmia, Diabetes, Gastritis, HTN, Hypothyroidism, Kidney Stones, Migraine - Surgical History Surgical History: Appendectomy (pt was told she had one 15 years ago but appendix visualized on recent US), (3) - Family History Family History: States: Unknown Family Hx - Social History Current smoker - smoking cessation education provided: No Alcohol: None Drugs: Denies - Immunization History Hx Tetanus Toxoid Vaccination: No Hx Influenza Vaccination: No Hx Pneumococcal Vaccination: No - Home Medications Home Medications: Ambulatory Orders Medication Instructions Recorded Losartan [Cozaar] 50 mg PO DAILY 07/31/16 hydroCHLOROthiazide [Hydrodiuril] 25 mg PO DAILY 07/31/16 Levothyroxine [Synthroid] 75 mcg PO DAILY 09/18/18 Multivitamin [Multi-Vitamin Daily] 1 tab PO DAILY 09/18/18 [place]-3 Fatty Acids/Fish Oil [Fish 1,000 mg PO DAILY 09/18/18 Oil 1,000 mg Capsule] Pantoprazole Sodium [Protonix] 40 mg PO DAILY 09/18/18 metFORMIN [glucOPHAGE] 250 mg PO DAILY 09/18/18 - Allergies Allergies/Adverse Reactions: Allergies Allergy/AdvReac Type Severity Reaction Status Date / Time acetaminophen [From Percocet] AdvReac ITCHING Verified 09/18/18 04:00 oxycodone [From Percocet] AdvReac ITCHING Verified 09/18/18 04:00 sumatriptan [From Imitrex] AdvReac SHORTNESS Verified 09/18/18 04:00 OF BREATH sumatriptan succinate AdvReac SHORTNESS Verified 09/18/18 04:00 [From Imitrex] OF BREATH Physical Exam - Reviewed Nursing Documentation Reviewed: Yes Vital Signs Reviewed: Yes - Physical Exam Appears: Positive for: Well, Non-toxic, No Acute Distress Head Exam: Positive for: ATRAUMATIC, NORMAL INSPECTION, NORMOCEPHALIC Skin: Positive for: Normal Color, Warm, DRY Eye Exam: Positive for: EOMI, Normal appearance, PERRL ENT: Positive for: Normal ENT Inspection Neck: Positive for: Normal, Painless ROM Cardiovascular/Chest: Positive for: Regular Rate, Rhythm Respiratory: Positive for: CNT, Normal Breath Sounds Gastrointestinal/Abdominal: Positive for: Normal Exam, Soft Back: Positive for: Normal Inspection Extremity: Positive for: Normal ROM Neurological/Psych: Positive for: Awake, Alert, Normal Tone - Laboratory Results Result Diagrams: 09/18/18 04:40 09/18/18 04:40 Lab Results: Total Bilirubin 0.5 mg/dl (0.2-1.3) 09/18/18 04:40 AST 27 U/L (14-36) 09/18/18 04:40 ALT 36 U/L (9-52) 09/18/18 04:40 Alkaline Phosphatase 158 U/L (38-126) H 09/18/18 04:40 Total Protein 8.4 G/DL (6.3-8.2) H 09/18/18 04:40 Albumin 4.9 g/dL (3.5-5.0) 09/18/18 04:40 Globulin 3.6 gm/dL (2.2-3.9) 09/18/18 04:40 Albumin/Globulin Ratio 1.3 (1.0-2.1) 09/18/18 04:40 Urine Color Yellow (YELLOW) 09/18/18 04:10 Urine Clarity Slighty-cloudy (Clear) 09/18/18 04:10 Urine pH 5.0 (5.0-8.0) 09/18/18 04:10 Ur Specific [place] 1.034 (1.003-1.030) H 09/18/18 04:10 Urine Protein 30 mg/dL (NEGATIVE) 09/18/18 04:10 Urine Glucose (UA) Neg mg/dL (NEGATIVE) 09/18/18 04:10 Urine Ketones Trace mg/dL (NEGATIVE) 09/18/18 04:10 Urine Blood Small (NEGATIVE) 09/18/18 04:10 Urine Nitrate Negative (NEGATIVE) 09/18/18 04:10 Urine Bilirubin Negative (NEGATIVE) 09/18/18 04:10 Urine Urobilinogen 0.2-1.0 mg/dL (0.2-1.0) 09/18/18 04:10 Ur Leukocyte Esterase Trace Michelle/uL (Negative) 09/18/18 04:10 Urine RBC (Auto) 9 /hpf (0-3) H 09/18/18 04:10 Urine Microscopic WBC 3 /hpf (0-5) 09/18/18 04:10 Ur Squamous Epith Cells 1 /hpf (0-5) 09/18/18 04:10 Calcium Oxalate Crystal Many /hpf (<OCC) H 09/18/18 04:10 - ECG O2 Sat by Pulse Oximetry: 100 Medical Decision Making Medical Decision Making: history of kdiney stones her iwth r flank pain rule out uti, pyelo, kidney stones Disposition - Clinical Impression Clinical Impression: Urolithiasis - Patient ED Disposition Is Patient to be Admitted: Transfer of Care - Disposition Disposition: Transfer of Care Disposition Time: 07:00 Condition: FAIR Patient Signed Over To: Anand Olmos
[2018-09-18] MEDS ORDERED: Sodium Chloride 0.9% 1,000 ML IV STA ×2 (06:26→08:03)
--- NOTE | 2018-09-18 08:04 | ED PDOC ---
- Laboratory Results Result Diagrams: 09/18/18 04:40 09/18/18 04:40 Lab Results: Total Bilirubin 0.5 mg/dl (0.2-1.3) 09/18/18 04:40 AST 27 U/L (14-36) 09/18/18 04:40 ALT 36 U/L (9-52) 09/18/18 04:40 Alkaline Phosphatase 158 U/L (38-126) H 09/18/18 04:40 Total Protein 8.4 G/DL (6.3-8.2) H 09/18/18 04:40 Albumin 4.9 g/dL (3.5-5.0) 09/18/18 04:40 Globulin 3.6 gm/dL (2.2-3.9) 09/18/18 04:40 Albumin/Globulin Ratio 1.3 (1.0-2.1) 09/18/18 04:40 Urine Color Yellow (YELLOW) 09/18/18 04:10 Urine Clarity Slighty-cloudy (Clear) 09/18/18 04:10 Urine pH 5.0 (5.0-8.0) 09/18/18 04:10 Ur Specific [place] 1.034 (1.003-1.030) H 09/18/18 04:10 Urine Protein 30 mg/dL (NEGATIVE) 09/18/18 04:10 Urine Glucose (UA) Neg mg/dL (NEGATIVE) 09/18/18 04:10 Urine Ketones Trace mg/dL (NEGATIVE) 09/18/18 04:10 Urine Blood Small (NEGATIVE) 09/18/18 04:10 Urine Nitrate Negative (NEGATIVE) 09/18/18 04:10 Urine Bilirubin Negative (NEGATIVE) 09/18/18 04:10 Urine Urobilinogen 0.2-1.0 mg/dL (0.2-1.0) 09/18/18 04:10 Ur Leukocyte Esterase Trace Michelle/uL (Negative) 09/18/18 04:10 Urine RBC (Auto) 9 /hpf (0-3) H 09/18/18 04:10 Urine Microscopic WBC 3 /hpf (0-5) 09/18/18 04:10 Ur Squamous Epith Cells 1 /hpf (0-5) 09/18/18 04:10 Calcium Oxalate Crystal Many /hpf (<OCC) H 09/18/18 04:10 Interpretation Of Abn Labs: 28 bun - ECG O2 Sat by Pulse Oximetry: 98 Pulse Ox Interpretation: Normal - CT Scan/US ct Other Rad Studies (CT/US): Read By Radiologist Other Rad Interpretation: 3mm R UVJ stone - Progress ED Course And Treament: 824: Stable. AAOx3. Pain still coming and going. Spoke with Dr. Best. Will consult. Wants rocephin and flomax. Will admit for pain control. Spoke with Dr. Nevarez who will admit. Disposition Counseled Patient/Family Regarding: Studies Performed, Diagnosis - Clinical Impression Clinical Impression: Urolithiasis - POA Present On Arrival: None - Disposition Disposition: Hospitalized as Observation Patient Disposition Time: 07:00 Condition: FAIR
[2018-09-18] MEDS ORDERED: cefTRIAXone (Rocephin) 1 gm Inj IV ONE (08:07)
[2018-09-18] MEDS ORDERED: cefTRIAXone (Rocephin) 1 gm Inj ONE (09:16)
--- NOTE | 2018-09-18 10:54 | CT ---
Date of service: 09/18/2018 PROCEDURE: CT Abdomen and Pelvis without intravenous contrast HISTORY: abd pain COMPARISON: Abdomen pelvis CT without contrast 05/27/2017. TECHNIQUE: Helical CT of the abdomen and pelvis was performed without oral or intravenous contrast as per referring physician request. Coronal and sagittal reformats were generated. Radiation dose: Total exam DLP = 652.29 mGy-cm. This CT exam was performed using one or more of the following dose reduction techniques: Automated exposure control, adjustment of the mA and/or kV according to patient size, and/or use of iterative reconstruction technique. FINDINGS: LOWER THORAX: Lung bases remain clear with cardiac size appearing upper limits normal to again. LIVER: Hepatomegaly without focal mass appreciable. No gross intrahepatic biliary dilatation or lack images contrast limits evaluation of the solid abdominal viscera however. GALLBLADDER AND BILE DUCTS: Mildly distended but otherwise unremarkable. PANCREAS: Unremarkable. No gross lesion or ductal dilatation. SPLEEN: Unremarkable. ADRENALS: Stable benign left adrenal adenoma 2.1 cm. KIDNEYS AND URETERS: Mild right hydronephrosis identified as well as hydroureter caused by a 2.5 mm obstructing calculus at the distal right ureter or right uterovesical junction. No left-sided obstructive uropathy. Punctate intrarenal calculus is nonobstructive at the upper as well as separate separate focus at the lower pole left kidney with none appreciable at the right. Phlebolith like calcifications are identified in the inferior pelvis soft tissues bilaterally. VASCULATURE: Unremarkable. No aortic aneurysm. No aortic atherosclerotic calcification or mural plaque present. BOWEL: The stomach is decompressed and difficult to evaluate, particularly without oral contrast. The bowel does not appear obstructed. There is a [id number] amount retained fecal material at the proximal and mid large-bowel. Left colonic diverticular change are identified which are nonacute once again. APPENDIX: Unremarkable. Normal appendix. PERITONEUM: Tiny fat containing umbilical hernia reiterated. No free fluid. No free air. LYMPH NODES: Unremarkable. No enlarged lymph nodes. BLADDER: Unremarkable. REPRODUCTIVE: Unremarkable. BONES: No acute fracture. OTHER FINDINGS: None. IMPRESSION: 1. 2.5 mm obstructing calculus right uterus with junction or distal right ureter causing mild right hydroureteronephrosis. 2. 2 punctate intrarenal calculi identified at the upper and lower pole left kidney in total, nonobstructive. 3. No additional potential acute findings in the abdomen or pelvis or definitive significant interval change. Concordant preliminary report from [facility], 09/18/2018 7:48 a.m..
[2018-09-18] MEDS: Sodium Chloride 0.9% 1,000 ML IV SCH (15:47)
[2018-09-19] MEDS: Sodium Chloride 0.9% 1,000 ML IV SCH ×2 (06:29→18:24)
[2018-09-19] MEDS: Levothyroxine 75 MCG TAB PO SCH (06:30)
[2018-09-19] MEDS: Omega-3-Acid Ethyl Esters 1 GM Cap PO SCH (10:23)
[2018-09-19] MEDS: Pantoprazole 40 mg EC Tab PO SCH (10:24)
[2018-09-19] MEDS: Multivitamin With Minerals Tab PO SCH (10:24)
[2018-09-19] MEDS ORDERED: Vancomycin 1 g Inj IVPB STA (11:39)
[2018-09-19] MEDS ORDERED: Gentamicin 80mg/50ml NS 80 MG/50 ML BAG IVPB ONE (12:00)
--- NOTE | 2018-09-19 13:27 | CP.PCM.CON ---
History of Present Illness - History of Present Illness History of Present Illness: 58 yo Diabetic female with hx of kidney stones is admitted to [facility] with flank pain and fever Referred for ID eval for positive blood cultures in the setting of nephrolithiasis and complicated UTI Was recently treated by PMD for URI with zithromax - Medical History PMH: Anxiety, Back Problems, Cardia Arrhythmia, Diabetes, Gastritis, HTN, Hypothyroidism, Kidney Stones, Migraine - Surgical History Surgical History: Appendectomy (pt was told she had one 15 years ago but appendix visualized on recent US), (3) - Family History Family History: States: Unknown Family Hx - Social History Current smoker - smoking cessation education provided: No Alcohol: None Drugs: Denies Review of Systems - Review of Systems All systems: reviewed and no additional remarkable complaints except - Constitutional Constitutional: As Per HPI, Anorexia - EENT Eyes: absent: As Per HPI, Blind Spots, Blurred Vision, Change in Vision, Decreased Night Vision, Diplopia, Discharge, Dry Eye, Exophthalmos, Floaters, Irritation, Itchy Eyes, Loss of Peripheral Vision, Pain, Photophobia, Requires Corrective Lenses, Sees Flashes, Spots in Vision, Tunnel Vision, Other Visual Disturbances, Loss of Vision, Other Ears: absent: As Per HPI, Decreased Hearing, Ear Discharge, Ear Pain, Tinnitus, Abnormal Hearing, Disequilibrium, Dizziness, Other Nose/Mouth/Throat: absent: As Per HPI, Epistaxis, Nasal Congestion, Nasal Discharge, Nasal Obstruction, Nasal Trauma, Nose Pain, Post Nasal Drip, Sinus Pain, Sinus Pressure, Bleeding Gums, Change in Voice, Dental Pain, Dry Mouth, Dysphagia, Halitosis, Hoarsness, Lip Swelling, Mouth Lesions, Mouth Pain, Odynophagia, Sore Throat, Throat Swelling, Tongue Swelling, Facial Pain, Neck Pain, Neck Mass, Other - Breasts Breasts: absent: As Per HPI, Change in Shape, Mass, Pain, Nipple Discharge, Nipple Inversion, Skin Changes, Swelling, Other - Cardiovascular Cardiovascular: As Per HPI. absent: Acrocyanosis, Chest Pain, Chest Pain at Rest, Chest Pain with Activity, Claudication, Diaphoresis, Dyspnea, Dyspnea on Exertion, Edema, Irregular Heart Rhythm, Pain Radiating to Arm/Neck/Jaw, Leg Edema, Leg Ulcers, Lightheadedness, Orthopnea, Palpitations, Paroxysmal Nocturnal Dyspnea, Pedal Edema, Radiating Pain, Rapid Heart Rate, Slow Heart Rate, Syncope, Other - Respiratory Respiratory: absent: As Per HPI, Cough, Dyspnea, Hemoptysis, Dyspnea on Exertion, Wheezing, Snoring, Stridor, Pain on Inspiration, Chest Congestion, Excessive Mucous Production, Change in Mucous Color, Pain with Coughing, Other - Gastrointestinal Gastrointestinal: absent: As Per HPI, Abdominal Pain, Belching, Bloating, Change in Bowel Habits, Change in Stool Character, Coffee Ground Emesis, Constipation, Cramping, Diarrhea, Dyspepsia, Dysphagia, Early Satiety, Excessive Flatus, Fecal Incontinence, Heartburn, Hematemesis, Hematochezia, Loose Stools, Melena, Nausea, Odynophagia, Temesmus, Vomiting, Other - Genitourinary Genitourinary: As Per HPI - Reproductive: Female Reproductive:Female: absent: As Per HPI, Amenorrhea, Amenorrhea/ Control, Currently Menstual, Cycle <21 Days, Cycle >35 Days, Cycle Variable, Menses 1-7 Days, Menses >/= 8 Days, Menses Variable, Cycle > 4 Weeks Between, No Menses for 6 Months, Heavy Menses, Light Menses, Normal Menses, Spotting Between Cycles, S/P Hysterectomy, Menopausal, Post Menopausal, Premenarche, Abnormal Vaginal Bleeding, Dysmenorrhea, Dyspareunia, Genital Lesions, Genital Pruritis, Pelvic Pain, Prolapse Symptoms, Sexual Dysfunction, Vaginal Discharge, Vaginal Dryness, Vaginal Odor, Vaginal Pruritis, Other - Menstruation Menstruation: absent: As Per HPI, Amenorrhea, Amenorrhea/ Control, Cu rrently Menstual, Cycle <21 Days, Cycle >35 Days, Cycle Variable, Menses 1-7 Days, Menses >/= 8 Days, Menses Variable, Cycle > 4 Weeks Between, No Menses for 6 Months, Heavy Menses, Light Menses, Normal Menses, Spotting Between Cycles, S/P Hysterectomy, Menopausal, Post Menopausal, Premenarche, Abnormal Vaginal Bleeding, Dysmenorrhea, Other - Musculoskeletal Musculoskeletal: absent: As Per HPI, Abnormal Gait, Arthralgias, Atrophy, Back Pain, Deformity, Joint Swelling, Limited Range of Motion, Loss of Height, Muscle Cramps, Muscle Weakness, Myalgias, Neck Pain, Numbness, Radiating Pain into Limb, Stiffness, Tingling, Other - Integumentary Integumentary: absent: As Per HPI, Acne, Alopecia, Bleeding Lesions, Change in Hair, Change in Nails, Change in Pigmentation, Changing Lesions, Dry Skin, Erythema, Furuncle, Hirsutism, Lesions, New Lesions, Non-Healing Lesions, Photosensitivity, Pruritus, Rash, Skin Pain, Skin Ulcer, Sores, Striae, Swelling, Unusual Bruising, Wounds, Jaundice, Other - Neurological Neurological: absent: As Per HPI, Abnormal Gait, Abnormal Hearing, Abnormal Movements, Abnormal Speech, Behavioral Changes, Burning Sensations, Confusion, Convulsions, Disequilibrium, Dizziness, Numbness, Focal Weakness, Frequent Falls, Headaches, Lack of Coordination, Loss of Vision, Memory Loss, Paresthesias, Radicular Pain, Restless Legs, Sensory Deficit, Syncope, Tingling, Tremor, Vertigo, Weakness, Other Visual Disturbances, Other - Psychiatric Psychiatric: absent: As Per HPI, Abnormal Sleep Pattern, Anhedonia, Anxiety, Auditory Hallucinations, Behavioral Changes, Change in Appetite, Change in Libido, Confusion, Depression, Difficulty Concentrating, Hallucinations, Homicidal Ideation, Hopelessness, Irritability, Memory Loss, Mood Swings, Panic Attacks, Paranoia, Suicidal Ideation, Visual Hallucinations, Tactile Nicola lucinations, Other - Endocrine Endocrine: absent: As Per HPI, Change in Body Appearance, Change in Libido, Cold Intolorance, Deepening of Voice, Excessive Sweating, Fatigue, Flushing, Heat Intolorance, Increase in Ring/Shoe/Hat Size, Palpitations, Polydipsia, P olyphagia, Polyuria, Other - Hematologic/Lymphatic Hematologic: absent: As Per HPI, Easy Bleeding, Easy Bruising, Lymphadenopathy, Other Past Patient History - Infectious Disease Hx of Infectious Diseases: None - Past Medical History & Family History Past Medical History?: Yes - Past Social History Smoking Status: Never Smoked - CARDIAC Hx Hypercholesterolemia: Yes Hx Hypertension: Yes - PULMONARY Hx Respiratory Disorders: No - NEUROLOGICAL Hx Migraine: Yes - HEENT Hx HEENT Problems: No - RENAL Hx Kidney Stones: Yes - ENDOCRINE/METABOLIC Hx Hypothyroidism: Yes - HEMATOLOGICAL/ONCOLOGICAL Hx Blood Disorders: No Hx AIDS: No Hx Human Immunodeficiency Virus (HIV): No - INTEGUMENTARY Hx Dermatological Problems: No - MUSCULOSKELETAL/RHEUMATOLOGICAL Hx Back Pain: Yes Hx Falls: No Other/Comment: Hx rotator cuff injuries - GASTROINTESTINAL Hx Gastritis: Yes - GENITOURINARY/GYNECOLOGICAL Hx Genitourinary Disorders: No Hx Ovarian Cancer: Yes (bilat ovary removal 1 year ago) Other/Comment: per pt she had elevated ca125 and pre cancerous cells on lef tovary - PSYCHIATRIC Hx Anxiety: Yes Hx Substance Use: No - SURGICAL HISTORY Hx Appendectomy: Yes (pt was told she had one 15 years ago but appendix visual ized on recent US) Hx Section: Yes - ANESTHESIA Hx Anesthesia: Yes Hx Anesthesia Reactions: No Hx Malignant Hyperthermia: No Has any member of the family had a problem w/ anesthesia?: No Meds Allergies/Adverse Reactions: Allergies Allergy/AdvReac Type Severity Reaction Status Date / Time acetaminophen [From Percocet] AdvReac ITCHING Verified 09/18/18 04:00 oxycodone [From Percocet] AdvReac ITCHING Verified 09/18/18 04:00 sumatriptan [From Imitrex] AdvReac SHORTNESS Verified 09/18/18 04:00 OF BREATH sumatriptan succinate AdvReac SHORTNESS Verified 09/18/18 04:00 [From Imitrex] OF BREATH - Medications Medications: Current Medications Hydrochlorothiazide (Hydrodiuril) 25 mg PO DAILY [facility] Sodium Chloride (Sodium Chloride 0.9%) 1,000 mls @ 80 mls/hr IV .[id number] [facility] Stop: 09/20/18 15:25 Last Admin: 09/19/18 06:29 Dose: 80 mls/hr Vancomycin HCl 1 gm/ Sodium (Chloride) 250 mls @ 100 mls/hr IVPB ONCE ONE Stop: 09/19/18 14:29 Ketorolac Tromethamine (Toradol) 30 mg IVP Q6 PRN PRN Reason: Pain, moderate (4-7) Last Admin: 09/19/18 10:13 Dose: 30 mg Levothyroxine Sodium (Synthroid) 75 mcg PO DAILY@0630 [facility] Last Admin: 09/19/18 06:30 Dose: Not Given Losartan Potassium (Cozaar) 50 mg PO DAILY [facility] Last Admin: 09/19/18 10:18 Dose: 50 mg Metformin HCl (Glucophage) 250 mg PO DAILY [facility] Last Admin: 09/19/18 10:25 Dose: 250 mg Multivitamins/Minerals (Therapeutic-M Tab) 1 tab PO DAILY [facility] Last Admin: 09/19/18 10:24 Dose: 1 tab [id number] Ethyl Esters (Lovaza) 1 gm PO DAILY [facility] Last Admin: 09/19/18 10:23 Dose: 1 gm Pantoprazole Sodium (Protonix Ec Tab) 40 mg PO DAILY [facility] Last Admin: 09/19/18 10:24 Dose: 40 mg Tamsulosin HCl (Flomax) 0.4 mg PO DAILY [facility] Last Admin: 09/18/18 09:16 Dose: 0.4 mg Physical Exam - Constitutional Appears: Non-toxic, No Acute Distress, Chronically Ill - Head Exam Head Exam: ATRAUMATIC, NORMAL INSPECTION, NORMOCEPHALIC - Eye Exam Eye Exam: EOMI, Normal appearance, PERRL Pupil Exam: NORMAL ACCOMODATION, PERRL - ENT Exam ENT Exam: Mucous Membranes Moist, Normal Exam - Neck Exam Neck exam: Positive for: Normal Inspection - Respiratory Exam Respiratory Exam: Clear to Auscultation Bilateral, NORMAL BREATHING PATTERN - Cardiovascular Exam Cardiovascular Exam: REGULAR RHYTHM - GI/Abdominal Exam GI & Abdominal Exam: Normal Bowel Sounds, Soft. absent: Tenderness - Rectal Exam Rectal Exam: Deferred - Exam Exam: NORMAL INSPECTION - Extremities Exam Extremities exam: Positive for: normal inspection - Back Exam Back exam: CVA tenderness (R), FULL ROM. absent: paraspinal tenderness, vertebral tenderness - Neurological Exam Neurological exam: Alert, CN II-XII Intact, Normal Gait, Oriented x3, Reflexes Normal - Psychiatric Exam Psychiatric exam: Normal Affect, Normal Mood - Skin Skin Exam: Dry, Intact, Normal Color, Warm Results - Vital Signs Recent Vital Signs: Last Vital Signs Temp 98.5 F 09/19/18 12:47 Pulse 76 09/19/18 12:47 Resp 18 09/19/18 12:47 BP 156/81 H 09/19/18 12:47 Pulse Ox 98 09/19/18 12:47 - Labs Result Diagrams: 09/18/18 04:40 09/18/18 04:40 Assessment & Plan (1) UTI (urinary tract infection) Status: Acute (2) Urolithiasis Status: Acute (3) Abdominal pain Status: Acute - Assessment and Plan (Free Text) Assessment: possible UTI in setting of nephrolithiasis will need eval for possible intervention positive blood c/s likely a contaminant- given stat dose Vanco urine c/s pending started cefepime
--- NOTE | 2018-09-19 16:11 | CP.PCM.HP ---
History of Present Illness - History of Present Illness History of Present Illness: CC: Abdominal pain. 58 y/o F, PMHx: L Kidney Stones with stent 10 yrs ago, Rotator Cuff injuries, Migraine, HTN, Cardiac Arrhythmia, DM, Hypercholesterolemia, Hypothyroidism. Pt was brought to [facility] on 09/18/18 to be evaluated for sudden acute Abdominal pain 2 hrs SLINGER SEQUINS with no relief. Pt described abdominal pain RLQ to R Flank, radiating to R groin area, described as sharp, Dull pain, intermittent, severe intensity 10:10, associated to nausea and vomiting NBNB. Patient passed stone in the ER and it was sendt for analysis Worsening symptoms: Urinating, obesity BMI: 34.3 Aggravated factor: Food, ADL's. Pt denied: Fever, chills, gross hematuria, diarrhea, CP, palpitations, syncope, SOB, cough, sick contact, recent travel out of [facility]. Abd/Pelv CT shows: 2.5 mm obstructing calculus R uterovesical junction of distal R ureter causing mild R hydroureteronephrosis, mild R hydronephrosis 2.2 punctuate intrarenal calculi at the upper and lower pole left kidney, nonobstructive. U C-S= Gran Negative [place]w. Present on Admission - Present on Admission Any Indicators Present on Admission: No Review of Systems - Constitutional Constitutional: Other (negative) - EENT Eyes: Requires Corrective Lenses Ears: Other (negative) Nose/Mouth/Throat: Other (negative) - Cardiovascular Cardiovascular: Other (negative) - Respiratory Respiratory: Other (negative) - Gastrointestinal Gastrointestinal: Abdominal Pain (RLQ), Nausea, Vomiting - Genitourinary Genitourinary: Flank Pain - Musculoskeletal Musculoskeletal: Back Pain - Integumentary Integumentary: Other (negative) - Neurological Neurological: Other (negative) - Psychiatric Psychiatric: Other (negative) - Endocrine Endocrine: Other (negative) - Hematologic/Lymphatic Hematologic: Other (negative) Past Patient History - Infectious Disease Hx of Infectious Diseases: None - Past Medical History & Family History Past Medical History?: Yes Pertinent Family History: Unknown - Past Social History Smoking Status: Never Smoked Alcohol: None Drugs: Denies Home Situation {Lives}: With Family - CARDIAC Hx Cardiac Disorders: Yes Hx Hypercholesterolemia: Yes Hx Hypertension: Yes - PULMONARY Hx Respiratory Disorders: No - NEUROLOGICAL Hx Neurological Disorder: Yes Hx Migraine: Yes - HEENT Hx HEENT Problems: No - RENAL Hx Chronic Kidney Disease: Yes Hx Kidney Stones: Yes - ENDOCRINE/METABOLIC Hx Endocrine Disorders: Yes Hx Hypothyroidism: Yes - HEMATOLOGICAL/ONCOLOGICAL Hx Blood Disorders: No Hx AIDS: No Hx Human Immunodeficiency Virus (HIV): No - INTEGUMENTARY Hx Dermatological Problems: No - MUSCULOSKELETAL/RHEUMATOLOGICAL Hx Musculoskeletal Disorders: Yes Hx Back Pain: Yes Hx Falls: No Other/Comment: Hx rotator cuff injuries - GASTROINTESTINAL Hx Gastrointestinal Disorders: Yes Hx Gastritis: Yes - GENITOURINARY/GYNECOLOGICAL Hx Genitourinary Disorders: No Hx Ovarian Cancer: Yes (bilat ovary removal 1 year ago) Other/Comment: per pt She had elevated ca125 and pre cancerous cells on left ovary - PSYCHIATRIC Hx Psychophysiologic Disorder: Yes Hx Anxiety: Yes Hx Substance Use: No - SURGICAL HISTORY Hx Surgeries: Yes Hx Appendectomy: Yes (pt was told she had one 15 years ago but appendix visualized on recent US) Hx Section: Yes - ANESTHESIA Hx Anesthesia: Yes Hx Anesthesia Reactions: No Hx Malignant Hyperthermia: No Has any member of the family had a problem w/ anesthesia?: No Meds Allergies/Adverse Reactions: Allergies Allergy/AdvReac Type Severity Reaction Status Date / Time oxycodone [From Percocet] AdvReac ITCHING Verified 09/18/18 04:00 sumatriptan [From Imitrex] AdvReac SHORTNESS Verified 09/18/18 04:00 OF BREATH sumatriptan succinate AdvReac SHORTNESS Verified 09/18/18 04:00 [From Imitrex] OF BREATH Physical Exam - Constitutional Appears: No Acute Distress - Head Exam Head Exam: NORMAL INSPECTION - Eye Exam Eye Exam: PERRL - ENT Exam ENT Exam: Normal Exam - Neck Exam Neck exam: Positive for: Normal Inspection - Respiratory Exam Respiratory Exam: Clear to Auscultation Bilateral - Cardiovascular Exam Cardiovascular Exam: REGULAR RHYTHM - GI/Abdominal Exam GI & Abdominal Exam: Normal Bowel Sounds, Soft. absent: Distended, Tenderness - Extremities Exam Extremities exam: Positive for: normal inspection - Back Exam Back exam: CVA tenderness (R) - Neurological Exam Neurological exam: Alert, CN II-XII Intact, Oriented x3, Reflexes Normal - Psychiatric Exam Psychiatric exam: Normal Affect, Normal Mood - Skin Skin Exam: Normal Color, Warm Results - Vital Signs Recent Vital Signs: Last Vital Signs Temp 98.5 F 09/19/18 12:47 Pulse 76 09/19/18 12:47 Resp 18 09/19/18 12:47 BP 156/81 H 09/19/18 12:47 Pulse Ox 98 09/19/18 12:47 reviewed J.PDanelle - Labs Result Diagrams: 09/20/18 07:40 09/21/18 13:49 Labs: reviewed J.P. - Imaging and Cardiology CT scan - abdomen Status: Report reviewed by me (John) CT scan - pelvis Status: Report reviewed by me (John) Assessment & Plan (1) Abdominal pain Status: Acute Priority: High (2) UTI (urinary tract infection) Status: Acute Priority: High (3) Urolithiasis Status: Acute Priority: High (4) Hypothyroidism Status: Chronic Priority: Medium (5) HTN (hypertension) Status: Chronic Priority: Medium (6) DMII (diabetes mellitus, type 2) Status: Chronic Priority: Medium - Assessment and Plan (Free Text) Plan: F/U Blood C-S, Continue Cefepime, Sodium Chl, Toradol, Lovaza, Protonix, Flomax and rest of Tx, ID and Urology consult appreciated - Date & Time Date: 09/19/18 Time: 13:50
[2018-09-19] MEDS: Cefepime 1 GM in Sodium Chloride 0.9% 100 ML IVPB SCH (18:20)
--- NOTE | 2018-09-19 21:14 | CON ---
DATE: 09/19/2018 TIME OF CONSULTATION: 09:55 a.m. BRIEF HISTORY: The patient is a 58-year-old female with a more than [id number] of kidney stones who recently developed acute onset of right renal colic, requiring her to come to [facility] ER. Abdominal pelvic CT done on 09/18/2018 showed an obstructing distal right UVJ 2.5-mm stone. The patient was admitted for IV hydration, IV antibiotics, and pain control. The patient then with IV hydration passed her stone in the emergency room and had a specimen for analysis and it is compatible with the 2.5-mm stone seen on previous CT. The patient now says her right renal colic is completely resolved. She does have some lower abdominal discomfort, mostly on the left side, and her urine cultures were positive for gram-negative rods, 20,000 to 50,000 colonies, and her blood cultures were positive for gram-positive cocci. The patient received Rocephin 1 g IV in the emergency room. PAST MEDICAL HISTORY: Positive for hypertension, thyroid disease, prediabetes and hyperlipidemia. PAST SURGICAL HISTORY: The patient is status post a partial hysterectomy with removal of both ovaries for treatment of precancer and she also had three C-sections. She is 5, para 6. SOCIAL HISTORY: She is a nonsmoker and no history of any alcohol use. FAMILY HISTORY: Her father from lung cancer and was a smoker. ALLERGIES: SHE HAS NO KNOWN ALLERGIES TO ANY MEDICATIONS. PHYSICAL EXAMINATION: VITAL SIGNS: Today, 09/19/2018, shows a temperature of 98.2, pulse rate of 79, blood pressure 124/53 and her respiratory rate is 18 and O2 sat on room air 97%. HEENT: Grossly within normal limits. NECK: Supple. Thyroid not palpable. ABDOMEN: Soft, not distended, nontender. No CVA tenderness and minimal 1+ suprapubic tenderness.. EXTREMITIES: She has full range of motion of both upper and lower extremities and she is slightly obese. LABORATORY DATA: Her laboratory evaluation on 09/18/2018 showed a CBC with a WBC count of 10.6, hemoglobin of 13.3, and a hematocrit of 39.2. Platelet count was 254,000. Chemistry profile shows a sodium of 140, potassium of 3.7, chloride 101, CO2 of 25, BUN and creatinine of 28 and 0.7 respectively with a GFR of greater than 60. Random glucose was 156. Calcium 9.9. Total bilirubin is 0.5. AST 27. ALT 36. Alkaline phosphatase is 158. Urinalysis showed the color was yellow. Clarity was slightly cloudy, pH of 5, specific gravity 1.034, protein 30, glucose negative, ketones trace, bloods small, nitrite negative, bilirubin negative. Urobilinogen 0.2 to 1, leukocytosis esterase trace, 9 rbc, 3 wbc with many calcium oxylate crystals suggestive of calcium oxylate stones. DIAGNOSTIC IMPRESSION: 1. Passed 2.5-mm distal right ureterovesical junction stone. 2. Possible urosepsis secondary to possible pyelonephritis. PLAN: 1. Treat the patient with IV antibiotics which could include either Rocephin or IV Zosyn and the patient may need an Infectious Disease consult for positive blood cultures. 2. Send the stone for analysis. The patient really should also now start on a low-oxylate diet. The patient also is advised to maintain increased fluid hydration plus lemonade. The patient will be seen in office followup in two weeks. Patel Best MD
[2018-09-20] MEDS: Cefepime 1 GM in Sodium Chloride 0.9% 100 ML IVPB SCH ×3 (00:48→16:37)
[2018-09-20] MEDS: Levothyroxine 75 MCG TAB PO SCH (06:38)
[2018-09-20 08:14] LABS: WHITE BLOOD COUNT 5.9 K/uL (4.8-10.8)
[2018-09-20 08:25] LABS: HEMOGLOBIN 11.4 g/dL (12.0-16.0); MEAN CELL VOLUME 87.4 fl (81.0-99.0); MEAN CORPUSCULAR HEMOGLOBIN 29.2 pg (27.0-31.0); MEAN CORPUSCULAR HGB CONC 33.4 g/dL (33.0-37.0); RBC 3.92 Mil/uL (3.80-5.20)
[2018-09-20 08:33] LABS: ALB/GLOB RATIO 1.2 (1.0-2.1); ALBUMIN 3.5 g/dL (3.5-5.0); ALT/SGPT 35 U/L (9-52); AST/SGOT 21 U/L (14-36); BLOOD UREA NITROGEN 12 mg/dl (7-17); CALCIUM 8.9 mg/dL (8.4-10.2); GFR NON-AFRICAN AMERICAN > 60
[2018-09-20] MEDS: Omega-3-Acid Ethyl Esters 1 GM Cap PO SCH (08:52)
[2018-09-20] MEDS: Multivitamin With Minerals Tab PO SCH (08:53)
[2018-09-20] MEDS: Pantoprazole 40 mg EC Tab PO SCH (08:53)
--- NOTE | 2018-09-20 15:41 | CP.PCM.PN ---
Subjective - Date & Time of Evaluation Date of Evaluation: 09/20/18 Time of Evaluation: 13:20 - Subjective Subjective: no Flank pain, no abdominal pain Objective - Vital Signs/Intake and Output Vital Signs (last 24 hours): Temp Pulse Resp BP Pulse Ox 99.5 F 69 20 136/64 98 09/20/18 12:35 09/20/18 12:35 09/20/18 12:35 09/20/18 12:35 09/20/18 12:35 - Medications Medications: Current Medications Acetaminophen (Tylenol 325mg Tab) 325 mg PO Q4 PRN PRN Reason: for pain Last Admin: 09/20/18 07:51 Dose: 325 mg Alprazolam (Xanax) 0.25 mg PO HS PRN PRN Reason: for sleep Stop: 09/26/18 22:01 Last Admin: 09/19/18 22:04 Dose: 0.25 mg Hydrochlorothiazide (Hydrodiuril) 25 mg PO DAILY [facility] Last Admin: 09/20/18 08:52 Dose: 25 mg Cefepime HCl 1 gm/ Sodium (Chloride) 100 mls @ 100 mls/hr IVPB Q8 [facility]; Protocol Last Admin: 09/20/18 08:56 Dose: 100 mls/hr Ketorolac Tromethamine (Toradol) 30 mg IVP Q6 PRN PRN Reason: Pain, moderate (4-7) Last Admin: 09/20/18 14:35 Dose: 30 mg Levothyroxine Sodium (Synthroid) 75 mcg PO DAILY@0630 [facility] Last Admin: 09/20/18 06:38 Dose: 75 mcg Losartan Potassium (Cozaar) 50 mg PO DAILY [facility] Last Admin: 09/20/18 08:54 Dose: 50 mg Metformin HCl (Glucophage) 250 mg PO DAILY [facility] Last Admin: 09/20/18 08:53 Dose: 250 mg Multivitamins/Minerals (Therapeutic-M Tab) 1 tab PO DAILY [facility] Last Admin: 09/20/18 08:53 Dose: 1 tab [id number] Ethyl Esters (Lovaza) 1 gm PO DAILY [facility] Last Admin: 09/20/18 08:52 Dose: 1 gm Pantoprazole Sodium (Protonix Ec Tab) 40 mg PO DAILY [facility] Last Admin: 09/20/18 08:53 Dose: 40 mg Tamsulosin HCl (Flomax) 0.4 mg PO DAILY [facility] Last Admin: 09/20/18 08:52 Dose: 0.4 mg - Labs Labs: 09/20/18 07:40 09/20/18 07:40 - Constitutional Appears: No Acute Distress - Head Exam Head Exam: NORMAL INSPECTION - Eye Exam Eye Exam: PERRL - ENT Exam ENT Exam: Normal Exam - Neck Exam Neck Exam: Normal Inspection - Respiratory Exam Respiratory Exam: Clear to Ausculation Bilateral - Cardiovascular Exam Cardiovascular Exam: REGULAR RHYTHM - GI/Abdominal Exam GI & Abdominal Exam: Soft, Normal Bowel Sounds - Back Exam Back Exam: CVA tenderness (L) (mild) - Neurological Exam Neurological Exam: Alert, CN II-XII Intact, Oriented x3. absent: Motor Sensory Deficit - Psychiatric Exam Psychiatric exam: Anxious - Skin Skin Exam: Warm Assessment and Plan (1) Abdominal pain Status: Acute (2) UTI (urinary tract infection) Status: Acute (3) Urolithiasis Status: Acute (4) Hypothyroidism Status: Chronic (5) HTN (hypertension) Status: Chronic (6) DMII (diabetes mellitus, type 2) Status: Chronic (7) Positive blood culture Assessment & Plan: G (+) cocci Status: Acute - Assessment and Plan (Free Text) Plan: continue Cefepime, Xanax,Toradol and rest of Tx, f/u Blood C-S
--- NOTE | 2018-09-20 17:39 | CP.PCM.PN ---
Subjective - Date & Time of Evaluation Date of Evaluation: 09/20/18 Time of Evaluation: 09:00 - Subjective Subjective: c/o pain denies fever awake and alert Objective - Vital Signs/Intake and Output Vital Signs (last 24 hours): Temp Pulse Resp BP Pulse Ox 98 F 70 20 116/58 L 97 09/20/18 16:16 09/20/18 16:16 09/20/18 16:16 09/20/18 16:16 09/20/18 16:16 - Medications Medications: Current Medications Acetaminophen (Tylenol 325mg Tab) 325 mg PO Q4 PRN PRN Reason: for pain Last Admin: 09/20/18 07:51 Dose: 325 mg Alprazolam (Xanax) 0.25 mg PO HS PRN PRN Reason: for sleep Stop: 09/26/18 22:01 Last Admin: 09/19/18 22:04 Dose: 0.25 mg Hydrochlorothiazide (Hydrodiuril) 25 mg PO DAILY [facility] Last Admin: 09/20/18 08:52 Dose: 25 mg Cefepime HCl 1 gm/ Sodium (Chloride) 100 mls @ 100 mls/hr IVPB Q8 [facility]; Protocol Last Admin: 09/20/18 16:37 Dose: 100 mls/hr Ketorolac Tromethamine (Toradol) 30 mg IVP Q6 PRN PRN Reason: Pain, moderate (4-7) Last Admin: 09/20/18 14:35 Dose: 30 mg Levothyroxine Sodium (Synthroid) 75 mcg PO DAILY@0630 [facility] Last Admin: 09/20/18 06:38 Dose: 75 mcg Losartan Potassium (Cozaar) 50 mg PO DAILY [facility] Last Admin: 09/20/18 08:54 Dose: 50 mg Metformin HCl (Glucophage) 250 mg PO DAILY [facility] Last Admin: 09/20/18 08:53 Dose: 250 mg Multivitamins/Minerals (Therapeutic-M Tab) 1 tab PO DAILY [facility] Last Admin: 09/20/18 08:53 Dose: 1 tab Kbvpl-6-Yaec Ethyl Esters (Lovaza) 1 gm PO DAILY [facility] Last Admin: 09/20/18 08:52 Dose: 1 gm Pantoprazole Sodium (Protonix Ec Tab) 40 mg PO DAILY [facility] Last Admin: 09/20/18 08:53 Dose: 40 mg Tamsulosin HCl (Flomax) 0.4 mg PO DAILY [facility] Last Admin: 09/20/18 08:52 Dose: 0.4 mg - Labs Labs: 09/20/18 07:40 09/20/18 07:40 - Constitutional Appears: Non-toxic, Chronically Ill - Head Exam Head Exam: ATRAUMATIC, NORMAL INSPECTION, NORMOCEPHALIC - Eye Exam Eye Exam: EOMI, Normal appearance, PERRL Pupil Exam: NORMAL ACCOMODATION, PERRL - ENT Exam ENT Exam: Mucous Membranes Moist, Normal Exam - Neck Exam Neck Exam: Full ROM, Normal Inspection. absent: Lymphadenopathy - Respiratory Exam Respiratory Exam: Clear to Ausculation Bilateral, NORMAL BREATHING PATTERN - Cardiovascular Exam Cardiovascular Exam: REGULAR RHYTHM, +S1, +S2. absent: Murmur - GI/Abdominal Exam GI & Abdominal Exam: Soft, Normal Bowel Sounds. absent: Tenderness - Rectal Exam Rectal Exam: Deferred - Exam Exam: NORMAL INSPECTION - Extremities Exam Extremities Exam: Full ROM, Normal Capillary Refill, Normal Inspection. absent: Joint Swelling, Pedal Edema - Back Exam Back Exam: NORMAL INSPECTION - Neurological Exam Neurological Exam: Alert, Awake, CN II-XII Intact, Normal Gait, Oriented x3 - Psychiatric Exam Psychiatric exam: Normal Affect, Normal Mood - Skin Skin Exam: Dry, Intact, Normal Color, Warm Assessment and Plan (1) UTI (urinary tract infection) Status: Acute (2) Urolithiasis Status: Acute (3) Abdominal pain Status: Acute - Assessment and Plan (Free Text) Assessment: blood cultures negative so far cont rx for UTI await eval
[2018-09-21] MEDS: Cefepime 1 GM in Sodium Chloride 0.9% 100 ML IVPB SCH ×3 (00:13→16:58)
[2018-09-21] MEDS: Levothyroxine 75 MCG TAB PO SCH (05:54)
[2018-09-21] MEDS: Multivitamin With Minerals Tab PO SCH (08:38)
[2018-09-21] MEDS: Omega-3-Acid Ethyl Esters 1 GM Cap PO SCH (08:39)
[2018-09-21] MEDS: Pantoprazole 40 mg EC Tab PO SCH (08:39)
--- NOTE | 2018-09-21 12:48 | CP.PCM.PN ---
Subjective - Date & Time of Evaluation Date of Evaluation: 09/21/18 Time of Evaluation: 08:00 - Subjective Subjective: awake alert afebrile NAD c/o pain left flank Objective - Vital Signs/Intake and Output Vital Signs (last 24 hours): Temp Pulse Resp BP Pulse Ox 97.6 F 58 L 20 142/74 98 09/21/18 06:00 09/21/18 08:41 09/21/18 06:00 09/21/18 08:41 09/21/18 06:00 Intake and Output: 09/21/18 09/21/18 06:59 18:59 Intake Total 900 Balance 900 - Medications Medications: Current Medications Acetaminophen (Tylenol 325mg Tab) 325 mg PO Q4 PRN PRN Reason: for pain Last Admin: 09/20/18 07:51 Dose: 325 mg Alprazolam (Xanax) 0.25 mg PO HS PRN PRN Reason: for sleep Stop: 09/26/18 22:01 Last Admin: 09/20/18 22:41 Dose: 0.25 mg Alprazolam (Xanax) 0.5 mg PO HS [facility] Hydrochlorothiazide (Hydrodiuril) 25 mg PO DAILY [facility] Last Admin: 09/21/18 08:39 Dose: 25 mg Cefepime HCl 1 gm/ Sodium (Chloride) 100 mls @ 100 mls/hr IVPB Q8 [facility]; Protocol Last Admin: 09/21/18 08:43 Dose: 100 mls/hr Ketorolac Tromethamine (Toradol) 30 mg IVP Q6 PRN PRN Reason: Pain, moderate (4-7) Last Admin: 09/21/18 12:33 Dose: 30 mg Levothyroxine Sodium (Synthroid) 75 mcg PO DAILY@0630 [facility] Last Admin: 09/21/18 05:54 Dose: 75 mcg Losartan Potassium (Cozaar) 50 mg PO DAILY [facility] Last Admin: 09/21/18 08:41 Dose: 50 mg Metformin HCl (Glucophage) 250 mg PO DAILY [facility] Last Admin: 09/21/18 08:40 Dose: 250 mg Multivitamins/Minerals (Therapeutic-M Tab) 1 tab PO DAILY [facility] Last Admin: 09/21/18 08:38 Dose: 1 tab [id number] Ethyl Esters (Lovaza) 1 gm PO DAILY [facility] Last Admin: 09/21/18 08:39 Dose: 1 gm Pantoprazole Sodium (Protonix Ec Tab) 40 mg PO DAILY [facility] Last Admin: 09/21/18 08:39 Dose: 40 mg Tamsulosin HCl (Flomax) 0.4 mg PO DAILY [facility] Last Admin: 09/21/18 08:42 Dose: 0.4 mg - Labs Labs: 09/20/18 07:40 09/20/18 07:40 - Constitutional Appears: Non-toxic, Chronically Ill - Head Exam Head Exam: NORMOCEPHALIC - Eye Exam Eye Exam: absent: Scleral icterus - ENT Exam ENT Exam: Mucous Membranes Dry - Neck Exam Neck Exam: absent: Lymphadenopathy - Respiratory Exam Respiratory Exam: Decreased Breath Sounds - Cardiovascular Exam Cardiovascular Exam: REGULAR RHYTHM - GI/Abdominal Exam GI & Abdominal Exam: Distended - Rectal Exam Rectal Exam: Deferred - Exam Exam: NORMAL INSPECTION - Extremities Exam Extremities Exam: absent: Pedal Edema - Back Exam Back Exam: CVA tenderness (L). absent: CVA tenderness (R) - Neurological Exam Neurological Exam: Alert, Awake - Psychiatric Exam Psychiatric exam: Depressed - Skin Skin Exam: Dry Assessment and Plan (1) UTI (urinary tract infection) Status: Acute (2) Urolithiasis Status: Acute (3) Abdominal pain Status: Acute - Assessment and Plan (Free Text) Assessment: await cultures on board may need stent cont IV then PO antibiotics
[2018-09-21 14:33] LABS: BLOOD UREA NITROGEN 19 mg/dl (7-17); CALCIUM 9.8 mg/dL (8.4-10.2); GFR NON-AFRICAN AMERICAN > 60
[2018-09-21 15:31] LABS: SQUAMOUS EPITHIAL 1 /hpf (0-5); URINE BILIRUBIN NEGATIVE (NEGATIVE); URINE BLOOD SMALL (NEGATIVE); URINE CLARITY SLIGHTY-CLOUDY (Clear); URINE COLOR YELLOW (YELLOW); URINE GLUCOSE (UA) NEG (NEGATIVE); URINE HYALINE CAST 0-2 /hpf (0-2); URINE LEUKOCYTE ESTERASE NEG Leu/uL (Negative); URINE PROTEIN NEGATIVE (NEGATIVE); URINE UROBILINOGEN 0.2-1.0 mg/dL (0.2-1.0)
--- NOTE | 2018-09-21 15:41 | CP.PCM.PN ---
Subjective - Date & Time of Evaluation Date of Evaluation: 09/21/18 Time of Evaluation: 15:30 - Subjective Subjective: F/U Abdominal pain. UTI L Flank, L groin Pain Objective - Vital Signs/Intake and Output Vital Signs (last 24 hours): Temp Pulse Resp BP Pulse Ox 98.4 F 58 L 22 142/74 98 09/21/18 09:00 09/21/18 09:00 09/21/18 09:00 09/21/18 09:00 09/21/18 09:00 Intake and Output: 09/21/18 09/21/18 06:59 18:59 Intake Total 900 Balance 900 - Medications Medications: Current Medications Acetaminophen (Tylenol 325mg Tab) 325 mg PO Q4 PRN PRN Reason: for pain Last Admin: 09/20/18 07:51 Dose: 325 mg Alprazolam (Xanax) 0.25 mg PO HS PRN PRN Reason: for sleep Stop: 09/26/18 22:01 Last Admin: 09/20/18 22:41 Dose: 0.25 mg Alprazolam (Xanax) 0.5 mg PO HS [facility] Hydrochlorothiazide (Hydrodiuril) 25 mg PO DAILY [facility] Last Admin: 09/21/18 08:39 Dose: 25 mg Cefepime HCl 1 gm/ Sodium (Chloride) 100 mls @ 100 mls/hr IVPB Q8 [facility]; Protocol Last Admin: 09/21/18 08:43 Dose: 100 mls/hr Ketorolac Tromethamine (Toradol) 30 mg IVP Q6 PRN PRN Reason: Pain, moderate (4-7) Last Admin: 09/21/18 12:33 Dose: 30 mg Levothyroxine Sodium (Synthroid) 75 mcg PO DAILY@0630 [facility] Last Admin: 09/21/18 05:54 Dose: 75 mcg Losartan Potassium (Cozaar) 50 mg PO DAILY [facility] Last Admin: 09/21/18 08:41 Dose: 50 mg Metformin HCl (Glucophage) 250 mg PO DAILY [facility] Last Admin: 09/21/18 08:40 Dose: 250 mg Multivitamins/Minerals (Therapeutic-M Tab) 1 tab PO DAILY [facility] Last Admin: 09/21/18 08:38 Dose: 1 tab [id number]-[id number] Ethyl Esters (Lovaza) 1 gm PO DAILY [facility] Last Admin: 09/21/18 08:39 Dose: 1 gm Pantoprazole Sodium (Protonix Ec Tab) 40 mg PO DAILY [facility] Last Admin: 09/21/18 08:39 Dose: 40 mg Tamsulosin HCl (Flomax) 0.4 mg PO DAILY [facility] Last Admin: 09/21/18 08:42 Dose: 0.4 mg - Labs Labs: 09/20/18 07:40 09/21/18 13:49 - Constitutional Appears: No Acute Distress - Head Exam Head Exam: NORMAL INSPECTION - Eye Exam Eye Exam: EOMI, PERRL - ENT Exam ENT Exam: Normal Exam - Neck Exam Neck Exam: Normal Inspection - Respiratory Exam Respiratory Exam: Clear to Ausculation Bilateral - Cardiovascular Exam Cardiovascular Exam: REGULAR RHYTHM - GI/Abdominal Exam GI & Abdominal Exam: Soft, Tenderness (LLQ), Normal Bowel Sounds - Extremities Exam Extremities Exam: Normal Inspection - Back Exam Back Exam: CVA tenderness (L) (mild) - Neurological Exam Neurological Exam: Abnormal Gait, Alert, CN II-XII Intact, Oriented x3, Reflexes Normal - Psychiatric Exam Psychiatric exam: Normal Affect, Normal Mood - Skin Skin Exam: Normal Color, Warm Assessment and Plan (1) Abdominal pain Status: Acute (2) UTI (urinary tract infection) Status: Acute (3) Urolithiasis Status: Acute (4) Hypothyroidism Status: Chronic (5) HTN (hypertension) Status: Chronic (6) DMII (diabetes mellitus, type 2) Status: Chronic (7) Positive blood culture Status: Acute (8) Left flank pain Status: Acute - Assessment and Plan (Free Text) Plan: continue Cefepime, Toradol, Xanax, f/u CT Abd/Pelvis with renal protocol
--- NOTE | 2018-09-21 15:51 | PN ---
DATE: 09/21/2018 SUBJECTIVE: The patient's right renal colic is completely resolved after passing her 2.5 mm right UVJ stone, but the patient now complains of left flank pain and left lower quadrant pain and some left renal colic currently on IV antibiotics. PHYSICAL EXAMINATION: Today, 09/21/2018, she has some 1-2+ left CVA tenderness and left lower quadrant tenderness. Her microbiology originally on 09/18/2018 was positive for Gram negative rods and 50,000 colonies. We will now order a repeat urinalysis and urine culture and sensitivity. The patient may need a followup abdominal pelvic CT stone survey. Her CBC on 09/20/2018 showed a WBC count of 5.9, hemoglobin of 11.4, and hematocrit of 34.3 with a platelet count of 190,000. We will also repeat SMA-7 to check her kidney function. Patel Best MD MTDD
--- NOTE | 2018-09-22 00:13 | CARD ---
APPROVED REPORT Date of service: 09/21/2018 EXAM: Two-dimensional and M-mode echocardiogram with Doppler and color Doppler. Other Information Quality : GoodRhythm : NSR INDICATION 2D DIMENSIONS IVSd1.14 (0.7-1.1cm)LVDd3.97 (3.9-5.9cm) LVOT Diameter1.97 (1.8-2.4cm)PWd0.98 (0.7-1.1cm) LA Cpryzm69 (18-58mL)LVDs2.83 (2.5-4.0cm) FS (%) 28.7 %SV44.22 ml LVEF (%)58.6 (>50%)CO3.12 L/min M-Mode DIMENSIONS Left Atrium (MM)4.55 (2.5-4.0cm)Aortic Root2.56 (2.2-3.7cm) Aortic Cusp Exc.1.46 (1.5-2.0cm) Aortic Valve AoV Peak Sjruwhat931.5cm/sAoV VTI39.6cmAO Peak GR.20mmHg LVOT Peak Uldsmxhr142.1cm/sLVOT VTI32.02cmAO Mean GR.10mmHg HAN (VMAX)1.41vp5NYG (VTI)1.43cm2 Mitral Valve MV E Haqrkhml99.5cm/sMV E Peak Gr.10mmHgMV DECEL [id number] MV A Ijyyiwhk23.4cm/sMV XXC30qgZ/A ratio1.0 MVA (PHT)3.77cm2 TDI Lateral E' Peak V8.64cm/sMedial E' Peak V8.96cm/sE/Lateral E'9.3 E/Medial E'9.0 Pulmonary Valve PV Peak Eefzmpnn384.3cm/s LEFT VENTRICLE The left ventricle is normal size. There is normal left ventricular wall thickness. The left ventricular systolic function is normal. The estimated ejection fraction is 55-60% No regional wall motion abnormalities noted.. Transmitral Doppler flow pattern is Grade I-abnormal relaxation pattern. No left ventricle thrombus noted on this study. There is no ventricular septal defect visualized. There is no left ventricular aneurysm. There is no mass noted in the left ventricle. RIGHT VENTRICLE The right ventricle is normal size. There is normal right ventricular wall thickness. The right ventricular systolic function is normal. ATRIA The left atrium is mildly dilated. The right atrium size is normal. The interatrial septum is intact with no evidence for an atrial septal defect. AORTIC VALVE The aortic valve is normal in structure. Mild aortic regurgitation is present. There is no aortic valvular stenosis. There is no aortic valvular vegetation. MITRAL VALVE The mitral valve is normal in structure. There is no evidence of mitral valve prolapse. There is no mitral valve stenosis. There is no mitral valve regurgitation noted. TRICUSPID VALVE The tricuspid valve is normal in structure. There is no tricuspid valve regurgitation noted. There is no tricuspid valve prolapse or vegetation. There is no tricuspid valve stenosis. PULMONIC VALVE The pulmonary valve is normal in structure. There is no pulmonic valvular regurgitation. There is no pulmonic valvular stenosis. GREAT VESSELS The aortic root is normal in size. The ascending aorta is normal in size. The pulmonary artery is normal. The IVC is normal in size and collapses >50% with inspiration. PERICARDIAL EFFUSION There is no pericardial effusion. There is no pleural effusion. <Conclusion> The estimated ejection fraction is 55-60% Transmitral Doppler flow pattern is Grade I-abnormal relaxation pattern. The left atrium is mildly dilated. Mild aortic regurgitation is present. There is no tricuspid valve regurgitation noted. There is no obvious vegetation found on this study. Correlate clinically.
[2018-09-22] MEDS: Cefepime 1 GM in Sodium Chloride 0.9% 100 ML IVPB SCH ×3 (00:33→16:44)
[2018-09-22 07:37] LABS: HEMOGLOBIN 11.5 g/dL (12.0-16.0); MEAN CELL VOLUME 86.6 fl (81.0-99.0); MEAN CORPUSCULAR HEMOGLOBIN 29.4 pg (27.0-31.0); RBC 3.92 Mil/uL (3.80-5.20); RED CELL DISTRIBUTION WIDTH 13.9 % (11.5-14.5); WHITE BLOOD COUNT 7.3 K/uL (4.8-10.8)
[2018-09-22 08:09] LABS: BLOOD UREA NITROGEN 20 mg/dl (7-17); CALCIUM 9.1 mg/dL (8.4-10.2); GFR NON-AFRICAN AMERICAN > 60
[2018-09-22] MEDS: Pantoprazole 40 mg EC Tab PO SCH (09:36)
[2018-09-22] MEDS: Levothyroxine 75 MCG TAB PO SCH (09:36)
[2018-09-22] MEDS: Multivitamin With Minerals Tab PO SCH (09:39)
[2018-09-22] MEDS: Omega-3-Acid Ethyl Esters 1 GM Cap PO SCH (09:42)
--- NOTE | 2018-09-22 13:14 | CP.PCM.PN ---
Subjective - Date & Time of Evaluation Date of Evaluation: 09/22/18 Time of Evaluation: 08:00 - Subjective Subjective: 58 yo female admitted for acute nephrolithiasis and UTI was referred for ID eval of positive Blood C/S Blood cultures growing strep sanguis in 1/2 sets She has 2 broken molars in mouth but denies pain or swelling in mouth No recent surgeries or procedures She is refusing repeat CT abd/pelvis IV rx is in progress await echo and repeat blood c/s report Objective - Vital Signs/Intake and Output Vital Signs (last 24 hours): Temp Pulse Resp BP Pulse Ox 98.6 F 86 20 147/84 98 09/22/18 12:29 09/22/18 12:29 09/22/18 12:29 09/22/18 12:29 09/22/18 12:29 - Medications Medications: Current Medications Acetaminophen (Tylenol 325mg Tab) 325 mg PO Q4 PRN PRN Reason: for pain Last Admin: 09/20/18 07:51 Dose: 325 mg Alprazolam (Xanax) 0.25 mg PO HS PRN PRN Reason: for sleep Stop: 09/26/18 22:01 Last Admin: 09/20/18 22:41 Dose: 0.25 mg Alprazolam (Xanax) 0.5 mg PO HS [facility] Last Admin: 09/21/18 21:49 Dose: 0.5 mg Hydrochlorothiazide (Hydrodiuril) 25 mg PO DAILY [facility] Last Admin: 09/22/18 09:42 Dose: 25 mg Cefepime HCl 1 gm/ Sodium (Chloride) 100 mls @ 100 mls/hr IVPB Q8 [facility]; Protocol Last Admin: 09/22/18 09:40 Dose: 100 mls/hr Ketorolac Tromethamine (Toradol) 30 mg IVP Q6 PRN PRN Reason: Pain, moderate (4-7) Last Admin: 09/22/18 05:59 Dose: 30 mg Levothyroxine Sodium (Synthroid) 75 mcg PO DAILY@0630 [facility] Last Admin: 09/22/18 09:36 Dose: 75 mcg Losartan Potassium (Cozaar) 50 mg PO DAILY [facility] Last Admin: 09/22/18 09:36 Dose: 50 mg Metformin HCl (Glucophage) 250 mg PO DAILY [facility] Last Admin: 09/22/18 09:40 Dose: 250 mg Multivitamins/Minerals (Therapeutic-M Tab) 1 tab PO DAILY [facility] Last Admin: 09/22/18 09:39 Dose: 1 tab Aurla-0-Ujrd Ethyl Esters (Lovaza) 1 gm PO DAILY [facility] Last Admin: 09/22/18 09:42 Dose: 1 gm Pantoprazole Sodium (Protonix Ec Tab) 40 mg PO DAILY [facility] Last Admin: 09/22/18 09:36 Dose: 40 mg Tamsulosin HCl (Flomax) 0.4 mg PO DAILY [facility] Last Admin: 09/22/18 09:39 Dose: 0.4 mg - Labs Labs: 09/22/18 06:30 09/22/18 06:30 - Constitutional Appears: Non-toxic, Chronically Ill - Head Exam Head Exam: ATRAUMATIC, NORMAL INSPECTION, NORMOCEPHALIC - Eye Exam Eye Exam: EOMI, Normal appearance, PERRL Pupil Exam: NORMAL ACCOMODATION, PERRL - ENT Exam ENT Exam: Mucous Membranes Moist, Normal Exam - Neck Exam Neck Exam: Full ROM, Normal Inspection. absent: Lymphadenopathy - Respiratory Exam Respiratory Exam: Clear to Ausculation Bilateral, NORMAL BREATHING PATTERN - Cardiovascular Exam Cardiovascular Exam: REGULAR RHYTHM, +S1, +S2. absent: Murmur - GI/Abdominal Exam GI & Abdominal Exam: Soft, Normal Bowel Sounds. absent: Tenderness - Rectal Exam Rectal Exam: Deferred - Exam Exam: NORMAL INSPECTION - Extremities Exam Extremities Exam: Full ROM, Normal Capillary Refill, Normal Inspection. absent: Joint Swelling, Pedal Edema - Back Exam Back Exam: NORMAL INSPECTION - Neurological Exam Neurological Exam: Alert, Awake, CN II-XII Intact, Normal Gait, Oriented x3 - Psychiatric Exam Psychiatric exam: Normal Affect, Normal Mood - Skin Skin Exam: Dry, Intact, Normal Color, Warm Assessment and Plan (1) UTI (urinary tract infection) Status: Acute (2) Urolithiasis Status: Acute (3) Abdominal pain Status: Acute - Assessment and Plan (Free Text) Assessment: 58 yo female admitted for acute nephrolithiasis and UTI was referred for ID eval of positive Blood C/S Blood cultures growing strep sanguis in 1/2 sets She has 2 broken molars in mouth but denies pain or swelling in mouth No recent surgeries or procedures IV rx is in progress await echo and repeat blood c/s report may need ALTAF consider cardio eval She is refusing repeat CT abd/pelvis but still has hematuria- on board
[2018-09-22] MEDS ORDERED: Iodixanol 320 MG/ML 100 ML BOTTLE IV ONE ×2 (15:49)
--- NOTE | 2018-09-22 16:24 | CP.PCM.PN ---
Subjective - Date & Time of Evaluation Date of Evaluation: 09/22/18 Time of Evaluation: 14:30 - Subjective Subjective: Pain L Flank, LLQ abdomen Objective - Vital Signs/Intake and Output Vital Signs (last 24 hours): Temp Pulse Resp BP Pulse Ox 98.6 F 86 20 147/84 98 09/22/18 12:29 09/22/18 12:29 09/22/18 12:29 09/22/18 12:29 09/22/18 12:29 - Medications Medications: Current Medications Acetaminophen (Tylenol 325mg Tab) 325 mg PO Q4 PRN PRN Reason: for pain Last Admin: 09/20/18 07:51 Dose: 325 mg Alprazolam (Xanax) 0.25 mg PO HS PRN PRN Reason: for sleep Stop: 09/26/18 22:01 Last Admin: 09/20/18 22:41 Dose: 0.25 mg Alprazolam (Xanax) 0.5 mg PO HS [facility] Last Admin: 09/21/18 21:49 Dose: 0.5 mg Hydrochlorothiazide (Hydrodiuril) 25 mg PO DAILY [facility] Last Admin: 09/22/18 09:42 Dose: 25 mg Cefepime HCl 1 gm/ Sodium (Chloride) 100 mls @ 100 mls/hr IVPB Q8 [facility]; Protocol Last Admin: 09/22/18 09:40 Dose: 100 mls/hr Ketorolac Tromethamine (Toradol) 30 mg IVP Q6 PRN PRN Reason: Pain, moderate (4-7) Last Admin: 09/22/18 05:59 Dose: 30 mg Levothyroxine Sodium (Synthroid) 75 mcg PO DAILY@0630 [facility] Last Admin: 09/22/18 09:36 Dose: 75 mcg Losartan Potassium (Cozaar) 50 mg PO DAILY [facility] Last Admin: 09/22/18 09:36 Dose: 50 mg Metformin HCl (Glucophage) 250 mg PO DAILY [facility] Last Admin: 09/22/18 09:40 Dose: 250 mg Multivitamins/Minerals (Therapeutic-M Tab) 1 tab PO DAILY [facility] Last Admin: 09/22/18 09:39 Dose: 1 tab Tdoma-5-Icvz Ethyl Esters (Lovaza) 1 gm PO DAILY [facility] Last Admin: 09/22/18 09:42 Dose: 1 gm Pantoprazole Sodium (Protonix Ec Tab) 40 mg PO DAILY [facility] Last Admin: 09/22/18 09:36 Dose: 40 mg Tamsulosin HCl (Flomax) 0.4 mg PO DAILY [facility] Last Admin: 09/22/18 09:39 Dose: 0.4 mg - Labs Labs: 09/22/18 06:30 09/22/18 06:30 - Constitutional Appears: No Acute Distress - Head Exam Head Exam: NORMOCEPHALIC - Eye Exam Eye Exam: PERRL - ENT Exam ENT Exam: Normal Exam - Neck Exam Neck Exam: Normal Inspection - Respiratory Exam Respiratory Exam: Clear to Ausculation Bilateral - Cardiovascular Exam Cardiovascular Exam: REGULAR RHYTHM - GI/Abdominal Exam GI & Abdominal Exam: Soft, Tenderness (LLQ mild). absent: Guarding, Rebound - Extremities Exam Extremities Exam: Normal Inspection - Neurological Exam Neurological Exam: Alert, CN II-XII Intact, Oriented x3. absent: Motor Sensory Deficit - Psychiatric Exam Psychiatric exam: Anxious - Skin Skin Exam: Warm Assessment and Plan (1) Abdominal pain Status: Acute (2) UTI (urinary tract infection) Status: Acute (3) Urolithiasis Status: Acute (4) Hypothyroidism Status: Chronic (5) HTN (hypertension) Status: Chronic (6) DMII (diabetes mellitus, type 2) Status: Chronic (7) Positive blood culture Status: Acute (8) Left flank pain Status: Acute - Assessment and Plan (Free Text) Plan: f/u CT Abd/Pelvis , continue Cefepime, Tramadol and rest of Tx, f/u blood C-S 4- 18 ID and Urology f/u appreciated
--- NOTE | 2018-09-22 17:10 | CT ---
Date of service: 09/22/2018 PROCEDURE: CT Abdomen and Pelvis with contrast HISTORY: R/O Left Flank Pain COMPARISON: 09/18/2018, 05/27/2017 CT scans TECHNIQUE: Contrast dose: 95 mL Radiation dose: Total exam DLP = 798.5 mGy-cm. This CT exam was performed using one or more of the following dose reduction techniques: Automated exposure control, adjustment of the mA and/or kV according to patient size, and/or use of iterative reconstruction technique. FINDINGS: LOWER THORAX: No new focal infiltrate or effusion from the prior study. Distal esophagus, stomach, and duodenum are unremarkable. LIVER: Stable fatty infiltration of the liver. No focal liver mass or intrahepatic ductal dilatation. GALLBLADDER AND BILE DUCTS: Unremarkable. PANCREAS: Unremarkable. No gross lesion or ductal dilatation. SPLEEN: Unremarkable. ADRENALS: Stable left adrenal adenoma. KIDNEYS AND URETERS: There appears to be decreased right pelvocaliceal dilatation and hydronephrosis from the prior study. Right ureter is also decreased in size. There appears to be interval passage of distal right UVJ calculus. No bladder calculus is seen. No appreciable left hydronephrosis or ureteral dilatation is seen. No left ureteral calculus is noted. Previously seen tiny left renal calculi are not as well seen on this postcontrast exam. No perinephric changes are seen bilaterally. Kidneys are normal in size. VASCULATURE: Unremarkable. No aortic aneurysm. No aortic atherosclerotic calcification or mural plaque present. BOWEL: Stable appearance of the bowel from the prior study. No new pericolonic inflammatory change or bowel obstruction. APPENDIX: Normal appendix. PERITONEUM: Unremarkable. No free fluid. No free air. LYMPH NODES: Unremarkable. No enlarged lymph nodes. BLADDER: Unremarkable. REPRODUCTIVE: Stable appearance of the uterus and adnexal regions. BONES: No acute fracture. OTHER FINDINGS: No ascites is seen. IMPRESSION: Interval passage of previously noted distal right UVJ calculus. Resolution of previously noted right hydronephrosis and hydroureter. No new hydronephrosis or ureteral calculus seen. No appreciable acute inflammatory process in the abdomen or pelvis. No evidence of colitis or bowel obstruction. Stable left adrenal adenoma. Stable fatty infiltration of the liver.
--- NOTE | 2018-09-22 20:05 | PN ---
DATE: 09/22/2018 TIME OF CONSULTATION: Roughly 3:23 a.m. SUBJECTIVE: The patient is still complaining of some left flank and left low back pain. The patient had a positive blood culture on 09/18/2018, which showed Streptococcus sanguinis and also at the same time, same day, she had gram-negative rods in the urine but only between 10,000 to 50,000 colonies, so no sensitivity was done. We may ask the lab if they still have the specimen to do sensitivities independent of colony count at this time. The patient, however, will remain in the hospital for treatment of her positive blood culture. We also are getting a followup abdominal pelvic CT. PHYSICAL EXAMINATION: VITAL SIGNS: Today, temperature is 98.6, pulse rate is 86, blood pressure is 147/84, respiratory rate is 20, and O2 saturation on room air is 98%. ABDOMEN: Today, her abdomen is soft, not distended. No right CVA tenderness. She has 1 to 2+ left CVA tenderness and some left lower quadrant tenderness. LABORATORY DATA: Today, 09/22/2018, shows a CBC with a WBC count of 7.3, hemoglobin 11.5, hematocrit is 34 and platelet count 210,000. Her chem profile today shows sodium of 139, potassium 3.8, chloride 102, CO2 of 28, BUN and creatinine 20 and 0.6 respectively with a GFR of greater than 60, indicating very stable renal function. Her random glucose was 109 and calcium was 9.1. DIAGNOSTIC IMPRESSION: 1. Septicemia. 2. Left renal colic and nonobstructing punctate left renal stones on previous CT. PLAN: Treat her blood culture and get the abdominal pelvic CT followup. We will also call the lab to see if they can do sensitivities on her previous urine culture. Patel Best MD [facility]
[2018-09-23] MEDS: Cefepime 1 GM in Sodium Chloride 0.9% 100 ML IVPB SCH ×3 (01:22→16:00)
[2018-09-23] MEDS: Levothyroxine 75 MCG TAB PO SCH (06:40)
[2018-09-23] MEDS: Omega-3-Acid Ethyl Esters 1 GM Cap PO SCH (09:12)
[2018-09-23] MEDS: Pantoprazole 40 mg EC Tab PO SCH (09:13)
[2018-09-23] MEDS: Multivitamin With Minerals Tab PO SCH (09:15)
[2018-09-24] MEDS: Cefepime 1 GM in Sodium Chloride 0.9% 100 ML IVPB SCH ×3 (00:34→16:37)
[2018-09-24 06:38] LABS: BASO % 0.3 % (0.0-2.0); EOS # 0.2 K/uL (0.0-0.7); EOS % 3.2 % (0.0-4.0); HEMOGLOBIN 11.4 g/dL (12.0-16.0); LYMPH # 1.9 K/uL (1.0-4.3); LYMPH % 31.4 % (20.0-40.0); MEAN CELL VOLUME 87.3 fl (81.0-99.0); MEAN CORPUSCULAR HEMOGLOBIN 29.4 pg (27.0-31.0); MEAN CORPUSCULAR HGB CONC 33.6 g/dL (33.0-37.0); MEAN PLATELET VOLUME 7.7 fl (7.2-11.7); MONO # 0.4 K/uL (0.0-0.8); MONO % 7.5 % (0.0-10.0); NEUT # 3.4 K/uL (1.8-7.0); NEUT % 57.6 % (50.0-75.0); NRBC % 0.1 % (0.0-0.0); RBC 3.89 Mil/uL (3.80-5.20); RED CELL DISTRIBUTION WIDTH 13.9 % (11.5-14.5)
[2018-09-24] MEDS: Levothyroxine 75 MCG TAB PO SCH (06:40)
[2018-09-24 06:51] LABS: ALB/GLOB RATIO 1.3 (1.0-2.1); ALBUMIN 3.6 g/dL (3.5-5.0); ALT/SGPT 43 U/L (9-52); AST/SGOT 36 U/L (14-36); BLOOD UREA NITROGEN 25 mg/dl (7-17); CALCIUM 8.8 mg/dL (8.4-10.2); GFR NON-AFRICAN AMERICAN > 60; HDL CHOLESTEROL 35 MG/DL (30-70)
[2018-09-24 06:54] LABS: LDL CHOLESTEROL 98 mg/dL (0-129)
[2018-09-24] MEDS: Omega-3-Acid Ethyl Esters 1 GM Cap PO SCH (09:39)
[2018-09-24] MEDS: Pantoprazole 40 mg EC Tab PO SCH (09:40)
[2018-09-24] MEDS: Multivitamin With Minerals Tab PO SCH (09:40)
--- NOTE | 2018-09-24 11:52 | CP.PCM.PN ---
Subjective - Date & Time of Evaluation Date of Evaluation: 09/24/18 Time of Evaluation: 09:00 - Subjective Subjective: strep in blood for cardio eval Objective - Vital Signs/Intake and Output Vital Signs (last 24 hours): Temp Pulse Resp BP Pulse Ox 97.8 F 75 18 143/77 97 09/24/18 05:00 09/24/18 09:37 09/24/18 05:00 09/24/18 09:37 09/24/18 05:00 - Medications Medications: Current Medications Acetaminophen (Tylenol 325mg Tab) 325 mg PO Q4 PRN PRN Reason: for pain Last Admin: 09/20/18 07:51 Dose: 325 mg Alprazolam (Xanax) 0.5 mg PO HS [facility] Last Admin: 09/23/18 22:08 Dose: 0.5 mg Hydrochlorothiazide (Hydrodiuril) 25 mg PO DAILY [facility] Last Admin: 09/24/18 09:38 Dose: 25 mg Cefepime HCl 1 gm/ Sodium (Chloride) 100 mls @ 100 mls/hr IVPB Q8 [facility]; Protocol Last Admin: 09/24/18 09:40 Dose: 100 mls/hr Ketorolac Tromethamine (Toradol) 30 mg IVP Q6 PRN PRN Reason: Pain, moderate (4-7) Last Admin: 09/24/18 00:57 Dose: 30 mg Levothyroxine Sodium (Synthroid) 75 mcg PO DAILY@0630 [facility] Last Admin: 09/24/18 06:40 Dose: 75 mcg Losartan Potassium (Cozaar) 50 mg PO DAILY [facility] Last Admin: 09/24/18 09:37 Dose: 50 mg Metformin HCl (Glucophage) 250 mg PO DAILY [facility] Last Admin: 09/24/18 09:38 Dose: 250 mg Multivitamins/Minerals (Therapeutic-M Tab) 1 tab PO DAILY [facility] Last Admin: 09/24/18 09:40 Dose: 1 tab Bfnru-0-Bstr Ethyl Esters (Lovaza) 1 gm PO DAILY [facility] Last Admin: 09/24/18 09:39 Dose: 1 gm Pantoprazole Sodium (Protonix Ec Tab) 40 mg PO DAILY [facility] Last Admin: 09/24/18 09:40 Dose: 40 mg Tamsulosin HCl (Flomax) 0.4 mg PO DAILY [facility] Last Admin: 09/24/18 09:37 Dose: 0.4 mg - Labs Labs: 09/24/18 06:10 09/24/18 06:10 - Constitutional Appears: Non-toxic, Chronically Ill - Head Exam Head Exam: ATRAUMATIC, NORMAL INSPECTION, NORMOCEPHALIC - Eye Exam Eye Exam: EOMI, Normal appearance, PERRL Pupil Exam: NORMAL ACCOMODATION, PERRL - ENT Exam ENT Exam: Mucous Membranes Moist, Normal Exam - Neck Exam Neck Exam: Full ROM, Normal Inspection. absent: Lymphadenopathy - Respiratory Exam Respiratory Exam: Clear to Ausculation Bilateral, NORMAL BREATHING PATTERN - Cardiovascular Exam Cardiovascular Exam: REGULAR RHYTHM, +S1, +S2. absent: Murmur - GI/Abdominal Exam GI & Abdominal Exam: Soft, Normal Bowel Sounds. absent: Tenderness - Rectal Exam Rectal Exam: Deferred - Exam Exam: NORMAL INSPECTION - Extremities Exam Extremities Exam: Full ROM, Normal Capillary Refill, Normal Inspection. absent: Joint Swelling, Pedal Edema - Back Exam Back Exam: NORMAL INSPECTION - Neurological Exam Neurological Exam: Alert, Awake, CN II-XII Intact, Normal Gait, Oriented x3 - Psychiatric Exam Psychiatric exam: Normal Affect, Normal Mood - Skin Skin Exam: Dry, Intact, Normal Color, Warm Assessment and Plan (1) UTI (urinary tract infection) Status: Acute (2) Urolithiasis Status: Acute (3) Abdominal pain Status: Acute - Assessment and Plan (Free Text) Assessment: await cardio eval may need ALTAF cont IV antibiotics
--- NOTE | 2018-09-24 12:12 | PQF ---
PROVIDER RESPONSE TEXT: UTI with bacteremia REVIEWER QUERY TEXT: Conflicting Documentation Clarification Physician?s Documentation Request This Form is Not a Permanent Document in the Medical Record Pt Name: SAMANTHA RODRÍGUEZ MR #: [id number] Payor: MEDICARE PART A Unit/Bed: [facility]-[id number] Adm Date: 09/21/2018 2:25:00 PM Reviewer: Bernie Medina Ext. Query Date: 09/24/2018 11:58:00 AM Conflicting Documentation Clarification [id number] By submitting this query, we are merely seeking further clarification of documentation to accurately reflect all conditions that you are monitoring, evaluating, treating or that extend the hospitalizati on or utilize additional resources of care. Please utilize your independent clinical judgment when ad dressing the question(s) below. Dear Doctor Delvin Nevarez, The patient?s Clinical Indicators include: -- Septicemia is listed in the 09/22 Urology progress note. Please document if the condition is: -- Confirmed and current -- Confirmed, treated and resolved -- Ruled out -- Other, please specify pulse: 92->83->98 afebrile pulse and respiratory rate: within normal range WBC: 10.6->5.9->7.3->6. 09/18@04;10;Urine culture: prelim: gram neg jose luis 09/18@09:30: Blood culture: Streptococcus Sangius 09/18@10:00 Blood culture: No growth 09/20 Blood culture; prelim: no growth after 3 days 09/21 Urine cult: no growth after 3 days 09/21 Admission: Inpatient: Admitting dx.: Bacteremia 09/19 ID: Referred for ID eval for positive blood cultures in the setting of nephrolithiasis and compl icated UTI recently treated by PMD for URI with zithromax (1) UTI (urinary tract infection) Status: Acute (2) Urolithiasis Status: Acute (3) Abdominal pain Status: Acute Assess possible UTI in setting of nephrolithiasis will need eval for possible intervention positive blood c/s likely a contaminant- given stat dose Vanco urine c/s pending started cefepime 09/20 Attending progress note : 7) Positive blood culture Assess: G (+) cocci Status: Acute --continue Cefepime, Xanax,Toradol and rest of Tx, f/u Blood C-S 09/20 ID progress note:: blood cultures negative so far cont rx for UTI await eval 09/22 ID: admitted for acute nephrolithiasis and UTI was referred for ID eval of positive Blood C/S Bl ood cultures growing strep sanguis in 1/2 sets She has 2 broken molars in mouth but denies pain or sw elling in mouth No recent surgeries or procedures IV rx is in progress await echo and repeat blood c/ s report may need ALTAF consider cardio eval She is refusing repeat CT abd/pelvis but still has hematuria 09/22 Urology: had a positive blood culture on 09/18/2018, which showed Streptococcus sanguinis and also at the same time, same day, she had gram-negative rods in the urine but only between 10,000 to 15,000 colonies, so no sensitivity was done. We may ask the lab if they still have the specimen to d o sensitivities independent of colony count at this time. The patient, however, will remain in the h ospital for treatment of her positive blood culture. 1.Septicemia. 2.Left renal colic and nonobstructing punctate left renal stones on previous CT. PLEASE DOCUMENT ANY ADDITIONAL DIAGNOSES AND/OR SPECIFICITY IN THE PROGRESS NOTES AND/OR DISCHARGE [facility]. Clinically unable to determine/unknown Disagree with the above request Need to discuss Query created by: Bernie Medina on 09/24/2018 11:58 AM Electronically signed by: Delvin Nevarez MD 09/24/2018 12:09 PM
--- NOTE | 2018-09-24 17:14 | CP.PCM.PN ---
Subjective - Date & Time of Evaluation Date of Evaluation: 09/24/18 Time of Evaluation: 13:15 - Subjective Subjective: F/U Abdominal pain. C/O of L flank pain Objective - Vital Signs/Intake and Output Vital Signs (last 24 hours): Temp Pulse Resp BP Pulse Ox 98 F 80 18 126/63 99 09/24/18 16:57 09/24/18 16:57 09/24/18 16:57 09/24/18 16:57 09/24/18 16:57 - Medications Medications: Current Medications Acetaminophen (Tylenol 325mg Tab) 325 mg PO Q4 PRN PRN Reason: for pain Last Admin: 09/20/18 07:51 Dose: 325 mg Alprazolam (Xanax) 0.5 mg PO HS [facility] Last Admin: 09/23/18 22:08 Dose: 0.5 mg Hydrochlorothiazide (Hydrodiuril) 25 mg PO DAILY [facility] Last Admin: 09/24/18 09:38 Dose: 25 mg Cefepime HCl 1 gm/ Sodium (Chloride) 100 mls @ 100 mls/hr IVPB Q8 [facility]; Protocol Last Admin: 09/24/18 16:37 Dose: 100 mls/hr Ketorolac Tromethamine (Toradol) 30 mg IVP Q6 PRN PRN Reason: Pain, moderate (4-7) Last Admin: 09/24/18 14:44 Dose: 30 mg Levothyroxine Sodium (Synthroid) 75 mcg PO DAILY@0630 [facility] Last Admin: 09/24/18 06:40 Dose: 75 mcg Losartan Potassium (Cozaar) 50 mg PO DAILY [facility] Last Admin: 09/24/18 09:37 Dose: 50 mg Metformin HCl (Glucophage) 250 mg PO DAILY [facility] Last Admin: 09/24/18 09:38 Dose: 250 mg Multivitamins/Minerals (Therapeutic-M Tab) 1 tab PO DAILY [facility] Last Admin: 09/24/18 09:40 Dose: 1 tab Xrhvo-4-Qxdd Ethyl Esters (Lovaza) 1 gm PO DAILY [facility] Last Admin: 09/24/18 09:39 Dose: 1 gm Pantoprazole Sodium (Protonix Ec Tab) 40 mg PO DAILY [facility] Last Admin: 09/24/18 09:40 Dose: 40 mg Tamsulosin HCl (Flomax) 0.4 mg PO DAILY [facility] Last Admin: 09/24/18 09:37 Dose: 0.4 mg - Labs Labs: 09/24/18 06:10 09/24/18 06:10 - Constitutional Appears: No Acute Distress - Head Exam Head Exam: NORMAL INSPECTION - Eye Exam Eye Exam: PERRL - ENT Exam ENT Exam: Normal Exam - Neck Exam Neck Exam: Normal Inspection - Respiratory Exam Respiratory Exam: NORMAL BREATHING PATTERN - Cardiovascular Exam Cardiovascular Exam: REGULAR RHYTHM - GI/Abdominal Exam GI & Abdominal Exam: Soft, Tenderness (mild LLQ) - Extremities Exam Extremities Exam: Normal Inspection - Back Exam Back Exam: NORMAL INSPECTION - Neurological Exam Neurological Exam: Alert, Oriented x3. absent: Motor Sensory Deficit - Psychiatric Exam Psychiatric exam: Anxious - Skin Skin Exam: Warm Assessment and Plan (1) Abdominal pain Status: Acute (2) UTI (urinary tract infection) Status: Acute (3) Urolithiasis Status: Acute (4) Hypothyroidism Status: Chronic (5) HTN (hypertension) Status: Chronic (6) DMII (diabetes mellitus, type 2) Status: Chronic (7) Positive blood culture Status: Acute (8) Left flank pain Status: Acute - Assessment and Plan (Free Text) Plan: Continue Cefepime, Toradol, Flomax and rest of Tx. Cardiology consul evaluate Pt for ALTAF.
--- NOTE | 2018-09-24 21:40 | PN ---
DATE: 09/24/2018 SUBJECTIVE: The patient is feeling much better this afternoon. She passed another stone most likely from the left kidney because her pain now is almost completely resolved including the left flank pain and renal colic. The followup abdominopelvic CT shows improvement in the right kidney with decreased dilatation of the right collecting system and right ureter suggestive of a passed right ureteral stone. Also the stones previously visualized in the left kidney are now not visualized, possibly suggestive of passed left renal stones. PHYSICAL EXAMINATION: ABDOMEN: Today, her abdomen is soft, not distended, nontender. No CVA tenderness and no suprapubic tenderness at this hour. IMPRESSION: The patient currently is being treated for sepsis most likely not related to the kidneys or her kidney stones. PLAN: Plan for this patient will be to maintain the patient on increased fluid hydration, and the patient can be seen to be discharged anytime home regarding Urology, and she can be seen in office followup in two to four weeks. Patel Best MD
[2018-09-25] MEDS: Cefepime 1 GM in Sodium Chloride 0.9% 100 ML IVPB SCH ×3 (01:19→18:20)
--- NOTE | 2018-09-25 04:32 | CON ---
DATE: 09/24/2018 CARDIOLOGY CONSULTATION REASON FOR EVALUATION: To evaluate the patient for ALTAF because of Streptococcus bacteremia. HISTORY OF PRESENT ILLNESS: The patient is a 58-year-old female who has a history of nephrolithiasis. In the past, she had left kidney stones, required ureteric stenting few years ago, which were removed, and the patient presents at this time with right flank pain. The patient was reported to have passed stone while in the emergency room. The patient's blood culture was positive for Streptococcus sanguis on 09/18/2018. The patient denies any recent endoscopic procedure. She did have dental workup more than a month ago and was told that she has cracked tooth that needs to be removed by a dental surgeon, and she is having bleeding on and off from that cracked tooth. The patient denies any chest pain or shortness of breath and is unaware of any prior cardiac history. SOCIAL HISTORY: Nonsmoker. MEDICATIONS: IV Cefepime 1 g every 8 hours, Cozaar 50 mg once a day, Glucophage 250 mg once a day, hydrochlorothiazide 25 mg once a day, Synthroid 75 mcg once a day, Xanax 0.5 mg p.o. daily at bedtime. REVIEW OF SYSTEMS: No recent fever or chills. No nausea or vomiting. PHYSICAL EXAMINATION: GENERAL: The patient is a middle-aged female who does not appear to be in acute distress. VITAL SIGNS: Blood pressure 126/63, heart rate 80, temperature 98, and respirations 18. HEENT: Normocephalic. CHEST: Clear. HEART: S1, S2 regular. ABDOMEN: Soft. EXTREMITIES: No edema. LABORATORY DATA: Echocardiographic study performed on 09/21/2018, i.e., three days ago revealed normal ejection fraction, grade 1 abnormal relaxation pattern. No obvious vegetation found on the study. Today's CBC within normal limits except for hemoglobin of 11.4. The patient's white count has been normal since admission. The SMA-7 is within normal limits except for glucose of 120 and BUN of 25. The patient's triglycerides are elevated at 291. Abdomen and pelvic CT scan, interval passage of previously noted distal right ureterovesical junction calculus. Resolution of previously noted hydronephrosis and hydroureter. No new hydronephrosis or ureteric calculus seen. No appreciable acute inflammatory process in the abdomen or pelvis. No evidence of colitis or bowel obstruction. ASSESSMENT: 1. Streptococcus bacteremia, most likely related to the patient's chronic dental problem with a cracked tooth and recurrent bleeding from the tooth. The issue of bacterial endocarditis is not clear so far. 2. Uncontrolled diabetes mellitus. 3. Passage of right ureterovesical junction calculus with improvement of the hydronephrosis and hydroureter. RECOMMENDATIONS: Continue current intravenous cefepime. I will review the transthoracic echocardiographic study and further discuss the case with the process improvement consultant, Infectious Disease specialist as well as the primary physician regarding the necessity of performing transesophageal echocardiographic study. Terrell Sellers MD
[2018-09-25] MEDS: Levothyroxine 75 MCG TAB PO SCH (06:43)
[2018-09-25] MEDS: Pantoprazole 40 mg EC Tab PO SCH (09:14)
[2018-09-25] MEDS: Multivitamin With Minerals Tab PO SCH (09:14)
[2018-09-25] MEDS: Omega-3-Acid Ethyl Esters 1 GM Cap PO SCH (09:14)
--- NOTE | 2018-09-25 16:53 | CP.PCM.PN ---
Subjective - Date & Time of Evaluation Date of Evaluation: 09/25/18 Time of Evaluation: 13:50 - Subjective Subjective: F./U Abdominal pain. No pain in L Flank. Objective - Vital Signs/Intake and Output Vital Signs (last 24 hours): Temp Pulse Resp BP Pulse Ox 98.6 F 72 20 132/74 97 09/25/18 16:34 09/25/18 16:34 09/25/18 16:34 09/25/18 16:34 09/25/18 16:34 - Medications Medications: Current Medications Acetaminophen (Tylenol 325mg Tab) 325 mg PO Q4 PRN PRN Reason: for pain Last Admin: 09/20/18 07:51 Dose: 325 mg Alprazolam (Xanax) 0.5 mg PO HS [facility] Hydrochlorothiazide (Hydrodiuril) 25 mg PO DAILY [facility] Last Admin: 09/25/18 09:19 Dose: 25 mg Cefepime HCl 1 gm/ Sodium (Chloride) 100 mls @ 100 mls/hr IVPB Q8 [facility]; Protocol Last Admin: 09/25/18 09:17 Dose: 100 mls/hr Ketorolac Tromethamine (Toradol) 30 mg IVP Q6 PRN PRN Reason: Pain, moderate (4-7) Last Admin: 09/25/18 09:34 Dose: 30 mg Levothyroxine Sodium (Synthroid) 75 mcg PO DAILY@0630 [facility] Last Admin: 09/25/18 06:43 Dose: 75 mcg Losartan Potassium (Cozaar) 50 mg PO DAILY [facility] Last Admin: 09/25/18 09:16 Dose: 50 mg Metformin HCl (Glucophage) 250 mg PO DAILY [facility] Last Admin: 09/25/18 09:16 Dose: 250 mg Multivitamins/Minerals (Therapeutic-M Tab) 1 tab PO DAILY [facility] Last Admin: 09/25/18 09:14 Dose: 1 tab Unzbg-0-Jfvg Ethyl Esters (Lovaza) 1 gm PO DAILY [facility] Last Admin: 09/25/18 09:14 Dose: 1 gm Pantoprazole Sodium (Protonix Ec Tab) 40 mg PO DAILY [facility] Last Admin: 09/25/18 09:14 Dose: 40 mg Tamsulosin HCl (Flomax) 0.4 mg PO DAILY [facility] Last Admin: 09/25/18 09:14 Dose: 0.4 mg - Labs Labs: 09/24/18 06:10 09/24/18 06:10 - Constitutional Appears: No Acute Distress - Head Exam Head Exam: NORMAL INSPECTION - Eye Exam Eye Exam: PERRL - ENT Exam ENT Exam: Normal Exam - Neck Exam Neck Exam: Normal Inspection - Respiratory Exam Respiratory Exam: NORMAL BREATHING PATTERN - Cardiovascular Exam Cardiovascular Exam: REGULAR RHYTHM - GI/Abdominal Exam GI & Abdominal Exam: Soft, Normal Bowel Sounds. absent: Tenderness - Extremities Exam Extremities Exam: Normal Inspection - Back Exam Back Exam: NORMAL INSPECTION. absent: tenderness - Neurological Exam Neurological Exam: Alert, Oriented x3. absent: Motor Sensory Deficit - Psychiatric Exam Psychiatric exam: Anxious - Skin Skin Exam: Warm Assessment and Plan (1) Abdominal pain Status: Acute (2) UTI (urinary tract infection) Status: Acute (3) Urolithiasis Status: Acute (4) Hypothyroidism Status: Chronic (5) HTN (hypertension) Status: Chronic (6) DMII (diabetes mellitus, type 2) Status: Chronic (7) Positive blood culture Status: Acute (8) Left flank pain Status: Acute - Assessment and Plan (Free Text) Plan: Pt passed L kidney stone on 09/23, CT Abd/Pelvis showed no stone L kidney. Cardiology consult appreciated. For ALTAF.
--- NOTE | 2018-09-25 19:00 | CARD ---
APPROVED REPORT Date of service: 09/25/2018 EXAM: Two-dimensional and M-mode echocardiogram with Doppler and color Doppler. Other Information Quality : GoodRhythm : NSR INDICATION Infection:Subacute bacterial endocarditis 2D DIMENSIONS IVSd1.13 (0.7-1.1cm)LVDd4.39 (3.9-5.9cm) LVOT Diameter1.99 (1.8-2.4cm)PWd0.92 (0.7-1.1cm) IVSs1.05 (0.8-1.2cm)LVDs3.47 (2.5-4.0cm) FS (%) 20.8 %PWs1.30 (0.8-1.2cm) M-Mode DIMENSIONS Left Atrium (MM)4.18 (2.5-4.0cm)IVSd0.82 (0.7-1.1cm) Aortic Root2.71 (2.2-3.7cm)LVDd5.71 (4.0-5.6cm) Aortic Cusp Exc.1.88 (1.5-2.0cm)PWd1.06 (0.7-1.1cm) IVSs1.18 cmFS (%) 45 % LVDs3.15 (2.0-3.8cm)PWs1.68 cm Aortic Valve AoV Peak Svflkrpr597.9cm/sAoV VTI36.7cmAO Peak GR.13mmHg LVOT Peak Trluxpzv365.1cm/sLVOT VTI26.60cmAO Mean GR.6mmHg HAN (VMAX)1.25rm3BOQ (VTI)1.31cm2 Mitral Valve MV E Ipgmqank03.9cm/sMV DECEL [id number] A Dtmyyric34.7cm/s MV BLS61zeS/A ratio0.9MVA (PHT)3.77cm2 TDI Lateral E' Peak V10.35cm/sMedial E' Peak V9.04cm/sE/Lateral E'7.4 E/Medial E'8.5 LEFT VENTRICLE The left ventricle is normal size. There is normal left ventricular wall thickness. The left ventricular systolic function is normal. The estimated ejection fraction is 55-60% No regional wall motion abnormalities noted.. Transmitral Doppler flow pattern is Grade I-abnormal relaxation pattern. No left ventricle thrombus noted on this study. There is no ventricular septal defect visualized. There is no left ventricular aneurysm. There is no mass noted in the left ventricle. RIGHT VENTRICLE The right ventricle is normal size. There is normal right ventricular wall thickness. The right ventricular systolic function is normal. ATRIA The left atrium is mildly dilated. The right atrium size is normal. The interatrial septum is intact with no evidence for an atrial septal defect. AORTIC VALVE The aortic valve is normal in structure. Mild aortic regurgitation is present. There is no aortic valvular stenosis. There is no aortic valvular vegetation. MITRAL VALVE The mitral valve is normal in structure. There is no evidence of mitral valve prolapse. There is no mitral valve stenosis. There is no mitral valve regurgitation noted. TRICUSPID VALVE The tricuspid valve is normal in structure. There is no tricuspid valve regurgitation noted. There is no tricuspid valve prolapse or vegetation. There is no tricuspid valve stenosis. PULMONIC VALVE The pulmonary valve is normal in structure. There is no pulmonic valvular regurgitation. There is no pulmonic valvular stenosis. GREAT VESSELS The aortic root is normal in size. The ascending aorta is normal in size. The pulmonary artery is normal. The IVC is normal in size and collapses >50% with inspiration. PERICARDIAL EFFUSION There is no pericardial effusion. There is no pleural effusion. <Conclusion> Technically difficult study The estimated ejection fraction is 55-60% Transmitral Doppler flow pattern is Grade I-abnormal relaxation pattern. The left atrium is mildly dilated. Mild aortic regurgitation is present. There is no tricuspid valve regurgitation noted. No obvious vegetations noted on this study. Correlate clinically.
--- NOTE | 2018-09-25 20:40 | PN ---
DATE: 09/25/2018 SUBJECTIVE: The patient denies any dizziness, fever or chills. PHYSICAL EXAMINATION: VITAL SIGNS: Blood pressure 104/57, heart rate 76, temperature 98.5. The patient was scheduled earlier for a transesophageal echocardiography study at [facility] after discussing the case with Dr. Knapp; however, the patient declined the procedure. She stated she is not comfortable having it. The patient's problems were discussed again with Dr. Knapp and plans to perform a transesophageal echocardiographic study tomorrow at [facility] were canceled. The patient will be maintained on her current medications including IV cefepime, Cozaar 50 mg once a day, Synthroid 75 mg once a day, and I will follow the repeat echocardiographic study performed today. Terrell Sellers MD
[2018-09-26] MEDS: Cefepime 1 GM in Sodium Chloride 0.9% 100 ML IVPB SCH ×2 (01:38→09:30)
[2018-09-26] MEDS: Levothyroxine 75 MCG TAB PO SCH ×2 (06:12→17:33)
[2018-09-26 08:47] VITALS: O2SAT 97
--- NOTE | 2018-09-26 13:59 | CP.PCM.PN ---
Subjective - Date & Time of Evaluation Date of Evaluation: 09/26/18 Time of Evaluation: 08:00 - Subjective Subjective: EVENTS NOTED IV RX IN PROGRESS REPEAT BLOOD C/S NEG REPEAT URINE NEG AWAIT ALTAF Objective - Vital Signs/Intake and Output Vital Signs (last 24 hours): Temp Pulse Resp BP Pulse Ox 98.6 F 57 L 18 140/61 97 09/26/18 09:00 09/26/18 09:00 09/26/18 09:00 09/26/18 09:00 09/26/18 09:00 - Medications Medications: Current Medications Acetaminophen (Tylenol 325mg Tab) 325 mg PO Q4 PRN PRN Reason: for pain Last Admin: 09/20/18 07:51 Dose: 325 mg Alprazolam (Xanax) 0.5 mg PO HS [facility] Last Admin: 09/25/18 22:20 Dose: 0.5 mg Hydrochlorothiazide (Hydrodiuril) 25 mg PO DAILY [facility] Last Admin: 09/25/18 09:19 Dose: 25 mg Cefepime HCl 1 gm/ Sodium (Chloride) 100 mls @ 100 mls/hr IVPB Q8 SANTOSH; Protocol Last Admin: 09/26/18 01:38 Dose: 100 mls/hr Ketorolac Tromethamine (Toradol) 30 mg IVP Q6 PRN PRN Reason: Pain, moderate (4-7) Last Admin: 09/26/18 07:36 Dose: 30 mg Levothyroxine Sodium (Synthroid) 75 mcg PO DAILY@0630 [facility] Last Admin: 09/26/18 06:12 Dose: Not Given Losartan Potassium (Cozaar) 50 mg PO DAILY [facility] Last Admin: 09/25/18 09:16 Dose: 50 mg Metformin HCl (Glucophage) 250 mg PO DAILY [facility] Last Admin: 09/25/18 09:16 Dose: 250 mg Multivitamins/Minerals (Therapeutic-M Tab) 1 tab PO DAILY [facility] Last Admin: 09/25/18 09:14 Dose: 1 tab Jaykr-8-Tafa Ethyl Esters (Lovaza) 1 gm PO DAILY [facility] Last Admin: 09/25/18 09:14 Dose: 1 gm Pantoprazole Sodium (Protonix Ec Tab) 40 mg PO DAILY [facility] Last Admin: 09/25/18 09:14 Dose: 40 mg Tamsulosin HCl (Flomax) 0.4 mg PO DAILY [facility] Last Admin: 09/25/18 09:14 Dose: 0.4 mg Tramadol HCl (Ultram) 50 mg PO Q4 PRN PRN Reason: Pain, moderate (4-7) - Labs Labs: 09/24/18 06:10 09/24/18 06:10 - Constitutional Appears: Non-toxic, Chronically Ill - Head Exam Head Exam: ATRAUMATIC, NORMAL INSPECTION, NORMOCEPHALIC - Eye Exam Eye Exam: EOMI, Normal appearance, PERRL Pupil Exam: NORMAL ACCOMODATION, PERRL - ENT Exam ENT Exam: Mucous Membranes Moist, Normal Exam - Neck Exam Neck Exam: Full ROM, Normal Inspection. absent: Lymphadenopathy - Respiratory Exam Respiratory Exam: Clear to Ausculation Bilateral, NORMAL BREATHING PATTERN - Cardiovascular Exam Cardiovascular Exam: REGULAR RHYTHM, +S1, +S2. absent: Murmur - GI/Abdominal Exam GI & Abdominal Exam: Soft, Normal Bowel Sounds. absent: Tenderness - Rectal Exam Rectal Exam: Deferred - Exam Exam: NORMAL INSPECTION - Extremities Exam Extremities Exam: Full ROM, Normal Capillary Refill, Normal Inspection. absent: Joint Swelling, Pedal Edema - Back Exam Back Exam: NORMAL INSPECTION - Neurological Exam Neurological Exam: Alert, Awake, CN II-XII Intact, Normal Gait, Oriented x3 - Psychiatric Exam Psychiatric exam: Normal Affect, Normal Mood - Skin Skin Exam: Dry, Intact, Normal Color, Warm Assessment and Plan (1) UTI (urinary tract infection) Status: Acute (2) Urolithiasis Status: Acute (3) Abdominal pain Status: Acute - Assessment and Plan (Free Text) Assessment: FOR POSSIBLE D/C HOME ON PO RX IF ALTAF NEG
[2018-09-26 16:43] VITALS: BP 126/70; RESP 20; TEMP 97.7
[2018-09-26] MEDS: Omega-3-Acid Ethyl Esters 1 GM Cap PO SCH (17:31)
[2018-09-26] MEDS: Pantoprazole 40 mg EC Tab PO SCH (17:32)
[2018-09-26] MEDS: Multivitamin With Minerals Tab PO SCH (17:33)
[2018-09-26 17:34] VITALS: PULSE 88
--- NOTE | 2018-09-27 16:56 | CP.PCM.DIS ---
Provider - Provider Date of Admission: 09/21/18 14:25 Attending physician: Delvin Stevenson MD Consults: 09/18/18 08:27 Urology Consult Stat Comment: Consulting Provider: Patel Best Consulting Physician: Patel Best Reason for Consult: kidney stone 09/19/18 11:47 Infectious Disease Consult Routine Comment: Consulting Provider: Andrew Knapp Consulting Physician: Andrew Knapp Reason for Consult: blood culture gm +cocci, urine gm - rods 09/24/18 10:43 Cardiology Consult Routine Comment: Consulting Provider: Terrell Sellers Consulting Physician: Terrell Sellers Reason for Consult: evaluate pt for ALTAF. pt with h/o of positive blood culture Diagnosis - Discharge Diagnosis (1) Abdominal pain Status: Acute Priority: High (2) UTI (urinary tract infection) Status: Acute Priority: High (3) Urolithiasis Status: Acute Priority: High (4) Hypothyroidism Status: Chronic Priority: Medium (5) HTN (hypertension) Status: Chronic Priority: Medium (6) DMII (diabetes mellitus, type 2) Status: Chronic Priority: Medium (7) Positive blood culture Status: Acute (8) Left flank pain Status: Acute Hospital Course - Lab Results Lab Results: Micro Results 09/20/18 15:51 Blood Blood Culture - Final NO GROWTH AFTER 5 DAYS 09/20/18 15:51 Blood Gram Stain - Final TEST NOT PERFORMED 09/20/18 14:48 Blood Blood Culture - Final NO GROWTH AFTER 5 DAYS 09/20/18 14:48 Blood Gram Stain - Final TEST NOT PERFORMED 09/18/18 04:10 Urine Random Urine Culture - Final Proteus Mirabilis 09/18/18 10:00 Blood-Venous Blood Culture - Final NO GROWTH AFTER 5 DAYS 09/18/18 10:00 Blood-Venous Gram Stain - Final TEST NOT PERFORMED 09/21/18 15:00 Urine,Clean Catch Urine Culture - Final No Growth (<1,000 CFU/ML) 09/18/18 09:30 Blood-Venous S.aureus & Coag-Neg Staph PNA FISH - Final 09/18/18 09:30 Blood-Venous Blood Culture - Final Streptococcus Sangius I 09/18/18 09:30 Blood-Venous Gram Stain - Final Most Recent Lab Values WBC 6.0 K/uL (4.8-10.8) 09/24/18 06:10 RBC 3.89 Mil/uL (3.80-5.20) 09/24/18 06:10 Hgb 11.4 g/dL (12.0-16.0) L 09/24/18 06:10 Hct 34.0 % (34.0-47.0) 09/24/18 06:10 MCV 87.3 fl (81.0-99.0) 09/24/18 06:10 MCH 29.4 pg (27.0-31.0) 09/24/18 06:10 MCHC 33.6 g/dL (33.0-37.0) 09/24/18 06:10 RDW 13.9 % (11.5-14.5) 09/24/18 06:10 Plt Count 214 K/uL (130-400) 09/24/18 06:10 MPV 7.7 fl (7.2-11.7) 09/24/18 06:10 Neut % (Auto) 57.6 % (50.0-75.0) 09/24/18 06:10 Lymph % (Auto) 31.4 % (20.0-40.0) 09/24/18 06:10 [place] % (Auto) 7.5 % (0.0-10.0) 09/24/18 06:10 Eos % (Auto) 3.2 % (0.0-4.0) 09/24/18 06:10 Baso % (Auto) 0.3 % (0.0-2.0) 09/24/18 06:10 Neut # (Auto) 3.4 K/uL (1.8-7.0) 09/24/18 06:10 Lymph # (Auto) 1.9 K/uL (1.0-4.3) 09/24/18 06:10 [place] # (Auto) 0.4 K/uL (0.0-0.8) 09/24/18 06:10 Eos # (Auto) 0.2 K/uL (0.0-0.7) 09/24/18 06:10 Baso # (Auto) 0.0 K/uL (0.0-0.2) 09/24/18 06:10 Sodium 139 mmol/l (132-148) 09/24/18 06:10 Potassium 3.9 MMOL/L (3.6-5.0) 09/24/18 06:10 Chloride 101 mmol/L (98-107) 09/24/18 06:10 Carbon Dioxide 30 mmol/L (22-30) 09/24/18 06:10 Anion Gap 12 (10-20) 09/24/18 06:10 BUN 25 mg/dl (7-17) H 09/24/18 06:10 Creatinine 0.7 mg/dl (0.7-1.2) 09/24/18 06:10 Est GFR ( Amer) > 60 09/24/18 06:10 Est GFR (Non-Af Amer) > 60 09/24/18 06:10 POC Glucose (mg/dL) 100 mg/dL (65-110) 09/26/18 07:50 Random Glucose 120 mg/dL (65-105) H 09/24/18 06:10 Hemoglobin A1c 6.3 % (4.2-6.5) 09/24/18 06:10 Calcium 8.8 mg/dL (8.4-10.2) 09/24/18 06:10 Magnesium 1.7 MG/DL (1.6-2.3) 09/24/18 06:10 Total Bilirubin 0.2 mg/dl (0.2-1.3) 09/24/18 06:10 AST 36 U/L (14-36) D 09/24/18 06:10 ALT 43 U/L (9-52) 09/24/18 06:10 Alkaline Phosphatase 133 U/L (38-126) H D 09/24/18 06:10 Total Protein 6.5 G/DL (6.3-8.2) 09/24/18 06:10 Albumin 3.6 g/dL (3.5-5.0) 09/24/18 06:10 Globulin 2.9 gm/dL (2.2-3.9) 09/24/18 06:10 Albumin/Globulin Ratio 1.3 (1.0-2.1) 09/24/18 06:10 Triglycerides 291 mg/DL (0-149) H 09/24/18 06:10 Cholesterol 177 mg/dL (0-199) 09/24/18 06:10 LDL Cholesterol Direct 98 mg/dL (0-129) 09/24/18 06:10 HDL Cholesterol 35 MG/DL (30-70) 09/24/18 06:10 Urine Color Yellow (YELLOW) 09/21/18 15:00 Urine Clarity Slighty-cloudy (Clear) 09/21/18 15:00 Urine pH 5.0 (5.0-8.0) 09/21/18 15:00 Ur Specific [place] 1.027 (1.003-1.030) 09/21/18 15:00 Urine Protein Negative mg/dL (NEGATIVE) 09/21/18 15:00 Urine Glucose (UA) Neg mg/dL (NEGATIVE) 09/21/18 15:00 Urine Ketones Negative mg/dL (NEGATIVE) 09/21/18 15:00 Urine Blood Small (NEGATIVE) 09/21/18 15:00 Urine Nitrate Negative (NEGATIVE) 09/21/18 15:00 Urine Bilirubin Negative (NEGATIVE) 09/21/18 15:00 Urine Urobilinogen 0.2-1.0 mg/dL (0.2-1.0) 09/21/18 15:00 Ur Leukocyte Esterase Neg Michelle/uL (Negative) 09/21/18 15:00 Urine RBC (Auto) 10 /hpf (0-3) H 09/21/18 15:00 Urine Microscopic WBC 1 /hpf (0-5) 09/21/18 15:00 Ur Squamous Epith Cells 1 /hpf (0-5) 09/21/18 15:00 Calcium Oxalate Crystal Many /hpf (<OCC) H 09/18/18 04:10 Hyaline Casts 0-2 /hpf (0-2) 09/21/18 15:00 Discharge Exam - Head Exam Head Exam: ATRAUMATIC, NORMAL INSPECTION, NORMOCEPHALIC Discharge Plan - Follow Up Plan Condition: GOOD Disposition: HOME/ ROUTINE Instructions: Kidney Stones in Adults, Amoxicillin and Clavulanate Additional Instructions: continue all home medications, see your pmd for follow up in [address] best in 1 week. call his office for appointment new prescription for augmentin 875 mg by mouth twice a day, start carlitos stevenson to call script to [facility] Referrals: Patel Best MD [Staff Provider] -
== END 2018-09-26 18:20 | disposition home or self-care (01) | DRG 690 ==
LOC: H.ER 03:44 → H.ERHOLD 08:09 → H.PEDS 14:18 → INTOOBSV 14:25 → OBSVTOIN 14:25
PROVIDERS: ADMIT Internal Medicine Pulmonary Disease; ATTEND Internal Medicine Pulmonary Disease
DX: N13.6 Pyonephrosis (principal); R78.81 Bacteremia; B95.4 Other streptococcus as the cause of diseases classified elsewhere; B96.4 Proteus (mirabilis) (morganii) as the cause of diseases classified elsewhere; Z68.34 Body mass index [BMI] 34.0-34.9, adult; E66.9 Obesity, unspecified; K03.81 Cracked tooth; E11.65 Type 2 diabetes mellitus with hyperglycemia; Z53.20 Procedure and treatment not carried out because of patient's decision for unspecified reasons; I10 Essential (primary) hypertension; E78.5 Hyperlipidemia, unspecified; E78.00 Pure hypercholesterolemia, unspecified; E03.9 Hypothyroidism, unspecified; F41.9 Anxiety disorder, unspecified; Z87.442 Personal history of urinary calculi; Z85.43 Personal history of malignant neoplasm of ovary; Z79.84 Long term (current) use of oral hypoglycemic drugs; Z88.6 Allergy status to analgesic agent

== ENCOUNTER 2018-10-17 12:26 | Emergency (ER) | payer MEDICAID, MEDICARE ==
[2018-10-17 12:27] VITALS: BMI 33.2
[2018-10-17 12:43] VITALS: RESP 18; TEMP 98; O2SAT 98
--- NOTE | 2018-10-17 13:37 | ED PDOC ---
HPI: Trauma/Fall - HPI Time Seen by Provider: 10/17/18 12:53 Chief Complaint (Nursing): Trauma Chief Complaint (Provider): Pain s/p Fall History Per: Patient History/Exam Limitations: no limitations Injury Occurred (Timing): Today @ (1145) Additional Complaint(s): 58 year old female presents to the ED for evaluation s/p a fall. Patient states around 1145 this morning she went to grab a bag of groceries in the store and fell backwards over boxes, landing on her back and left side. She reports hitting the boxes and being stuck between them a shopping cart. She notes in the process she urinated herself and has since had left elbow pain, left shoulder pain, diffuse back pain mostly localized to lower area, and neck pain. Otherwise, denies loss of consciousness, head injury, chest pain, abdominal pain, vomiting, difficulty walking, numbness or tingling. Of note, at the scene, patient notes she took Alleve with little relief. PMD: Ervin Past Medical History Reviewed: Historical Data, Nursing Documentation, Vital Signs Vital Signs: Last Vital Signs Temp 98 F 10/17/18 12:39 Pulse 94 H 10/17/18 12:39 Resp 18 10/17/18 12:39 BP 176/100 H 10/17/18 12:39 Pulse Ox 98 10/17/18 12:39 Primary Care Provider: FAMILY PROVIDER,NO - Medical History PMH: Anxiety, Back Problems, Cardia Arrhythmia, Diabetes (type II), Gastritis, HTN, Hypercholesterolemia, Hypothyroidism, Kidney Stones, Migraine, Chronic Kidney Disease Denies: HIV - Surgical History Surgical History: Appendectomy (pt was told she had one 15 years ago but appendix visualized on recent US), (x3) Other surgeries: ovaries removed; ankle surgery; breast and back lump removal - Family History Family History: States: Unknown Family Hx - Social History Current smoker - smoking cessation education provided: No Alcohol: None Drugs: Denies - Immunization History Hx Tetanus Toxoid Vaccination: No Hx Influenza Vaccination: No Hx Pneumococcal Vaccination: No - Home Medications Home Medications: Ambulatory Orders Medication Instructions Recorded Losartan [Cozaar] 50 mg PO DAILY 07/31/16 hydroCHLOROthiazide [Hydrodiuril] 25 mg PO DAILY 07/31/16 Levothyroxine [Synthroid] 75 mcg PO DAILY 09/18/18 Multivitamin [Multi-Vitamin Daily] 1 tab PO DAILY 09/18/18 [place]-3 Fatty Acids/Fish Oil [Fish 1,000 mg PO DAILY 09/18/18 Oil 1,000 mg Capsule] Pantoprazole Sodium [Protonix] 40 mg PO DAILY 09/18/18 metFORMIN [glucOPHAGE] 250 mg PO DAILY 09/18/18 Cyclobenzaprine [Cyclobenzaprine 10 mg PO TID PRN #8 tab 10/17/18 HCl] Naproxen 500 mg PO BID PRN #20 tab 10/17/18 - Allergies Allergies/Adverse Reactions: Allergies Allergy/AdvReac Type Severity Reaction Status Date / Time oxycodone [From Percocet] AdvReac ITCHING Verified 09/18/18 04:00 sumatriptan [From Imitrex] AdvReac SHORTNESS Verified 09/18/18 04:00 OF BREATH sumatriptan succinate AdvReac SHORTNESS Verified 09/18/18 04:00 [From Imitrex] OF BREATH Review of Systems ROS Statement: Except As Marked, All Systems Reviewed And Found Negative Genitourinary Female: Positive for: Other (urinated self upon impact) Musculoskeletal: Positive for: Neck Pain, Shoulder Pain (left), Arm Pain (left elbow), Back Pain (diffuse, mostly lower) Physical Exam - Reviewed Nursing Documentation Reviewed: Yes Vital Signs Reviewed: Yes - Physical Exam Comments: GENERAL APPEARANCE: Patient is awake, alert, oriented x 3, in no acute distress. SKIN: Warm, dry; (-) cyanosis. HEAD: (-) swelling and tenderness, with no palpable bony defect. EYES: (-) conjunctival pallor, (-) scleral icterus, (-) nystagmus. ENMT: Mucous membranes moist. Nose: (-) tenderness. No oral trauma. Pharynx clear. Airway patent: (-) stridor. Full ROM of mandible without pain. NECK: (+) Full ROM, (+) mild C5-C7 tenderness, (+) left paraspinal tenderness, (-) crepitus, (-) bony step off CHEST AND RESPIRATORY: (-) chest wall tenderness. Lungs: (-) rales, (-) rhonchi, (-) wheezes; breath sounds equal bilaterally. HEART AND CARDIOVASCULAR: (-) irregularity; (-) murmur, (-) gallop. ABDOMEN AND GI: Soft; (-) tenderness. BACK: (+) tenderness L4-S1 with spasm, (+) decreased ROM secondary to pain EXTREMITIES: (+) tenderness to left elbow with contusion, (+) tenderness to left posterior shoulder, (+) left trapezium tenderness, (-) deformity, (-) edema, distal pulses 2+. full ROM all extremities except decreased left shoulder flexion and abduction NEURO AND PSYCH: Mental status as above. Has full memory of episode; track maintainer: Pupils equal & reactive . EOMI. (-) facial asymmetry. Tongue and uvula midline. Strength 5/5 in all extremities. No gross sensory deficits. DTRs symmetric.Normal steady gait. - ECG O2 Sat by Pulse Oximetry: 98 (RA) Pulse Ox Interpretation: Normal Medical Decision Making Medical Decision Making: Time: 1317 Initial Impression: body pain s/p fall Initial Plan: --C-spine XR --Lumbar spine XR --Tylenol 650mg PO --Elbow XR left --Sacrum / Coccyx XR --Shoulder XR left -- pt denied muscle relaxer Elbow XR FINDINGS: BONES: Bone alignment is normal. There is no acute displaced fracture or bone destruction. There is periarticular bone demineralization. JOINTS: Normal. No osteoarthritis. SOFT TISSUES: Normal. JOINT EFFUSION: None. OTHER FINDINGS: None IMPRESSION: No acute displaced fracture or dislocation. C-spine XR FINDINGS: BONES: There is normal alignment of the cervical vertebral bodies. There is normal cervical lordosis. Vertebral height is normal. Bone mineralization is normal. There is no acute fracture or traumatic anterior listhesis. The craniocervical junction is normal. The atlantoaxial joint normal. DISC SPACES: Normal. SOFT TISSUES: Normal. No prevertebral soft tissue swelling. OTHER FINDINGS: None. IMPRESSION: No acute fracture or traumatic anterior listhesis. Straightening of the cervical spine may be positional or related to muscle spasm. Sacrum/ Coccyx XR FINDINGS: BONES: Sacrum and coccyx are normal in appearance. There is mild diffuse bone demineralization. No f acute displaced racture or focal lesion. The sacrococcygeal angulation is normal. SACROILIAC JOINTS: Mild degenerative osteoarthrosis in the sacroiliac joints. OTHER FINDINGS: None. IMPRESSION: No acute displaced fracture or subluxation. Lumbar Spine XR FINDINGS: BONES: There is normal alignment of the lumbar vertebral bodies. There is normal lumbar lordosis. There is no acute fracture, spondylolysis or spondylolisthesis. Bone mineralization is normal. DISC SPACES: The disc heights are maintained. There is moderate facet arthropathy at L4-5 and L5-S1. OTHER FINDINGS: None. IMPRESSION: No acute fracture, spondylolysis or spondylolisthesis. Shoulder XR FINDINGS: Three views were obtained. BONES: Bone alignment and mineralization are normal. There is no acute displaced fracture or bone destruction. JOINTS: There is moderate degenerative osteoarthrosis in the acromioclavicular joint. There is superior subluxation of the humeral head with loss of subacromion space. SOFT TISSUES: Normal. OTHER FINDINGS: None. IMPRESSION: 1. No acute displaced fracture or dislocation. 2. Superior subluxation of the humeral head with loss of subacromion space could represent chronic rotator cuff injury. Clinical follow-up is advised and if clinically indicated correlation with MRI of the shoulder without intravenous contrast may be performed on a non emergent basis. 3. Moderate degenerative osteoarthrosis in the acromioclavicular joint. Pt denies ever having shoulder pain or injury in the past, pt has pain to area of subluxation noted, discussed with Dr. Rivas, who recommends shoulder immbolizer and ortho follow up Shoulder immbolizier applied to pt on re eval pt reports she feels sore but pain is improved Discussed results, diagnosis, treatment, return precautions and f/u with pt who is understanding, in agreement and stable for dc Scribe Attestation: Documented by Leela Onofre, acting as a scribe for Gokul Gonsalez PA-C. Provider Scribe Attestation: All medical record entries made by the Scribe were at my direction and personally dictated by me. I have reviewed the chart and agree that the record accurately reflects my personal performance of the history, physical exam, medical decision making, and the department course for this patient. I have also personally directed, reviewed, and agree with the discharge instructions and disposition. Disposition - Clinical Impression Clinical Impression: Fall from slip, trip, or stumble, Injury of left rotator cuff, Muscle spasms of neck, Low back pain, Contusion, elbow, Inferior subluxation of left humerus, initial encounter - Patient ED Disposition Is Patient to be Admitted: No Counseled Patient/Family Regarding: Studies Performed, Diagnosis, Need For Followup, Rx Given - Disposition Referrals: Germania Moore MD [Staff Provider] - Disposition: Routine/Home Disposition Time: 16:52 Condition: STABLE Additional Instructions: Return to ED for new or worsening symptoms, fever >100.4, numbness or tingling, unable to walk or move neck. Follow up with your primary doctor or orthopedist as soon as possible. You were diagnosed with "superior subluxation of the humeral head with loss of subacromion space could represent chronic rotator cuff injury" Wear sling and immbolizier during the day. Rest, ice and elevate your arm. Take medications as prescribed. DO not drive or drink alcohol when taking flexeril. Prescriptions: Cyclobenzaprine [Cyclobenzaprine HCl] 10 mg PO TID PRN #8 tab PRN Reason: muscle relaxation Naproxen 500 mg PO BID PRN #20 tab PRN Reason: Pain, Moderate (4-7) Instructions: Rotator Cuff Injury, Low Back Pain in Adults, Shoulder Instability, Contusion (DC) Forms: [employer] ([place]) Print Language: SLOVENIAN - POA Present On Arrival: Falls Or Trauma
--- NOTE | 2018-10-17 15:29 | RAD ---
Date of service: 10/17/2018 PROCEDURE: Cervical Spine Radiographs. HISTORY: Pain. COMPARISON: None available. TECHNIQUE: 3 views obtained. FINDINGS: BONES: There is normal alignment of the cervical vertebral bodies. There is normal cervical lordosis. Vertebral height is normal. Bone mineralization is normal. There is no acute fracture or traumatic anterior listhesis. The craniocervical junction is normal. The atlantoaxial joint normal. DISC SPACES: Normal. SOFT TISSUES: Normal. No prevertebral soft tissue swelling. OTHER FINDINGS: None. IMPRESSION: No acute fracture or traumatic anterior listhesis. Straightening of the cervical spine may be positional or related to muscle spasm.
--- NOTE | 2018-10-17 15:35 | RAD ---
Date of service: 10/17/2018 PROCEDURE: Radiographs of the Lumbar Spine. HISTORY: fall COMPARISON: No prior. TECHNIQUE: 5 views obtained. FINDINGS: BONES: There is normal alignment of the lumbar vertebral bodies. There is normal lumbar lordosis. There is no acute fracture, spondylolysis or spondylolisthesis. Bone mineralization is normal. DISC SPACES: The disc heights are maintained. There is moderate facet arthropathy at L4-5 and L5-S1. OTHER FINDINGS: None. IMPRESSION: No acute fracture, spondylolysis or spondylolisthesis.
--- NOTE | 2018-10-17 15:36 | RAD ---
Date of service: 10/17/2018 PROCEDURE: Radiographs of the left elbow. HISTORY: fall COMPARISON: No prior. TECHNIQUE: 3 views obtained. FINDINGS: BONES: Bone alignment is normal. There is no acute displaced fracture or bone destruction. There is periarticular bone demineralization. JOINTS: Normal. No osteoarthritis. SOFT TISSUES: Normal. JOINT EFFUSION: None. OTHER FINDINGS: None IMPRESSION: No acute displaced fracture or dislocation.
--- NOTE | 2018-10-17 15:37 | RAD ---
Date of service: 10/17/2018 PROCEDURE: Radiographs of the Sacrum and Coccyx HISTORY: fall COMPARISON: None available. TECHNIQUE: Frontal and lateral views of the sacrum and coccyx. 4 views obtained. FINDINGS: BONES: Sacrum and coccyx are normal in appearance. There is mild diffuse bone demineralization. No f acute displaced racture or focal lesion. The sacrococcygeal angulation is normal. SACROILIAC JOINTS: Mild degenerative osteoarthrosis in the sacroiliac joints. OTHER FINDINGS: None. IMPRESSION: No acute displaced fracture or subluxation.
--- NOTE | 2018-10-17 16:12 | RAD ---
Date of service: 10/17/2018 PROCEDURE: Radiographs of the left shoulder HISTORY: fall COMPARISON: 10/14/2015. FINDINGS: Three views were obtained. BONES: Bone alignment and mineralization are normal. There is no acute displaced fracture or bone destruction. JOINTS: There is moderate degenerative osteoarthrosis in the acromioclavicular joint. There is superior subluxation of the humeral head with loss of subacromion space. SOFT TISSUES: Normal. OTHER FINDINGS: None. IMPRESSION: 1. No acute displaced fracture or dislocation. 2. Superior subluxation of the humeral head with loss of subacromion space could represent chronic rotator cuff injury. Clinical follow-up is advised and if clinically indicated correlation with MRI of the shoulder without intravenous contrast may be performed on a non emergent basis. 3. Moderate degenerative osteoarthrosis in the acromioclavicular joint.
[2018-10-17 17:06] VITALS: BP 130/74; PULSE 80
== END 2018-10-17 17:06 | disposition home or self-care (01) ==
LOC: H.ER 12:26
DX: S43.003A Unspecified subluxation of unspecified shoulder joint, initial encounter (principal); S30.0XXA Contusion of lower back and pelvis, initial encounter; M54.2 Cervicalgia; W01.0XXA Fall on same level from slipping, tripping and stumbling without subsequent striking against object, initial encounter; Y92.89 Other specified places as the place of occurrence of the external cause; E03.9 Hypothyroidism, unspecified; E11.22 Type 2 diabetes mellitus with diabetic chronic kidney disease; I12.9 Hypertensive chronic kidney disease with stage 1 through stage 4 chronic kidney disease, or unspecified chronic kidney disease; Z79.84 Long term (current) use of oral hypoglycemic drugs; Z88.5 Allergy status to narcotic agent